=== PATIENT | male | born 1965 | race Two or more races ===

== ENCOUNTER 2017-10-12 00:07 | Inpatient (IN) | payer OTHER, MEDICAID ==
[~2017-10-12] VITALS: Ht 170.2 cm; Wt 75.6 kg
[~2017-10-12 00:07] MED LIST: ALBUPOW26 XX; HYDR-4683; IBUP800T24 PO; ISON300T68 PO; METO10TA3; MYCO500T3 PO; OMEP20TA44 PO; PRED-188 PO; PREDPOW63 PO; RANI300T3 PO; TAMS0.4C36 PO; THIA100T5 PO
[2017-10-12 01:50] LABS: Basophils # (auto) 0.1 uL; Basophils % (auto) 0.7 % (0.0-2.0); Eosinophils # (auto) 1.8 uL; Eosinophils % (auto) 13.9 % (0.0-7.0); Hemoglobin 15.7 g/dL (13.5-17.5); Lymphocytes # (auto) 0.8 uL; Lymphocytes % (auto) 6.1 % (10.0-50.0); Mean Corpuscular Hemoglobin 29.7 pg (28.0-32.0); Mean Corpuscular Hgb Conc. 33.3 g/dL (32.0-36.0); Monocytes # (auto) 0.9 uL; Monocytes % (auto) 6.6 % (0.0-12.0); Neutrophils # (auto) 9.4 uL; Neutrophils % (auto) 72.7 % (37.0-80.0); Platelet Count (auto) 286 10^3/uL (140-450); Red Blood Cells 5.28 10^6/uL (4.5-5.90); Red Cell Distribution Width 13.3 % (11.8-14.3)
[2017-10-12 02:15] LABS: Alanine Aminotransferase 25 U/L (16-61); Albumin 3.5 g/dL (3.4-5.0); Anion Gap 7 (5-15); Aspartate Aminotransferase 20 U/L (15-37); Blood Urea Nitrogen 12 mg/dL (7-18); Calcium 8.5 mg/dL (8.5-10.1); Carbon Dioxide 26 mmol/L (21-32); Chloride 104 mmol/L (98-107); GFR African American 111 mL/min; GFR Non-African American 92 mL/min; Glucose 105 mg/dL (74-106); Magnesium 1.9 mg/dL (1.6-2.6); Potassium 4.1 mmol/L (3.5-5.1); Sodium 137 mmol/L (136-145)
[2017-10-12 02:20] LABS: Alkaline Phosphatase 86 U/L (45-117); Bilirubin, Total 0.3 mg/dL (0.2-1.0); Total Protein 7.7 g/dL (6.4-8.2)
[2017-10-12 03:04] LABS: Alcohol, Urine < 3.0 mg/dL (0-5); Amphetamine Screen, Urine NEGATIVE (NEGATIVE); Barbiturate Scree,Urine NEGATIVE (NEGATIVE); Benzodiazephine Screen, Urine NEGATIVE (NEGATIVE); Cannabinoid Screen, Urine NEGATIVE (NEGATIVE); Cocaine Screen, Urine NEGATIVE (NEGATIVE); Opiate Scree,Urine NEGATIVE (NEGATIVE); Phencyclidine Screen, Urine NEGATIVE (NEGATIVE)
[2017-10-12 07:44] LABS: Urine WBC None Seen /hpf (0 - 3)
[2017-10-12 08:09] LABS: Urine Amorphous Crystal MOD /hpf (None Seen); Urine Bacteria NONE SEEN /hpf (None Seen); Urine Blood Negative /uL (Negative); Urine Mucus FEW (None Seen)
[2017-10-12] MEDS ORDERED: SODIUM CHLORIDE 0.9% 500 ML IVB ONE (11:53)
[2017-10-12] MEDS ORDERED: methylPREDNISolone SOD SUCC 125 MG/2 ML VL IV ONE ×2 (12:00→15:00)
[2017-10-12] MEDS ORDERED: cefTRIAXone 1GM/10ml IVPUSH 10 ML IV ONE (12:00)
[2017-10-12 13:01] LABS: Magnesium 2.2 mg/dL (1.6-2.6)
[2017-10-12] MEDS ORDERED: LORazepam 0.5 MG TAB PO PRN (15:00)
[2017-10-12] MEDS ORDERED: MORPHINE SULF INJ 2 MG/ML SYRINGE 1ML IV PRN (15:00)
[2017-10-12] MEDS ORDERED: VANCOMYCIN PER PHARMACY 0 MG IV SCH (15:00)
[2017-10-12] MEDS ORDERED: ALBUTEROL SULF 2.5 MG/0.5ML(0.5%) NEB SOLN HHN ONE (15:00)
[2017-10-12] MEDS ORDERED: NITROGLYCERIN 0.4 MG SL TAB SL PRN (15:00)
[2017-10-12] MEDS ORDERED: VANCOMYCIN 1GM/250ML 250 ML IV ONE (15:00)
[2017-10-12] MEDS ORDERED: PROMETHAZINE HCL 25 MG/ML 1ML IV PRN (15:00)
[2017-10-12] MEDS ORDERED: HYDROcodone-ACET 5/325MG TAB PO PRN (15:00)
[2017-10-12] MEDS ORDERED: IPRATROPIUM BROM 0.5 MG/2.5ML INH SOL HHN ONE (15:00)
[2017-10-12] MEDS ORDERED: PIPERACILLIN-TAZOB 3.375GM 50 ML IV ONE (15:00)
[2017-10-12] MEDS ORDERED: TEMAZEPAM 15 MG CAP PO PRN (15:00)
[2017-10-12] MEDS ORDERED: ALBUTEROL SULF 2.5 MG/0.5ML(0.5%) NEB SOLN NEB PRN (15:00)
[2017-10-12] MEDS ORDERED: LACTULOSE 20Gm/30ML SOLN PO PRN (15:00)
[2017-10-12] MEDS ORDERED: MORPHINE SULFATE 4 MG/ML SYR/VIAL IV PRN (15:00)
[2017-10-12] MEDS ORDERED: OSELTAMIVIR 75 MG CAP PO ONE (15:00)
[2017-10-12] MEDS: ENOXAPARIN SOD 40 MG/0.4 ML SYRINGE SC SCH (15:32)
[2017-10-12] MEDS: SODIUM CHLORIDE 0.9% 1,000 ML IV SCH (16:21)
[2017-10-12] MEDS: AZITHROMYCIN 500MG/ 250ML 250 ML IV SCH (16:48)
[2017-10-12] MEDS: ALBUTEROL SULF 2.5 MG/0.5ML(0.5%) NEB SOLN NEB SCH (18:00)
[2017-10-12] MEDS: IPRATROPIUM BROM 0.5 MG/2.5ML INH SOL NEB SCH (18:00)
[2017-10-12] MEDS: methylPREDNISolone SOD SUCC 40 MG/ML VL IV SCH ×2 (18:45→23:35)
[2017-10-12] MEDS: VANCOMYCIN 1GM/250ML 250 ML IV SCH (19:01)
[2017-10-12] MEDS: OSELTAMIVIR 75 MG CAP PO SCH (19:08)
[2017-10-12 20:15] VITALS: BP 104/69
[2017-10-12] MEDS: PIPERACILLIN-TAZOB 3.375GM 50 ML IV SCH ×2 (21:31→22:57)
[2017-10-12] MEDS: ISONIAZID 300 MG TAB PO SCH (21:44)
[2017-10-12 22:27] VITALS: BP 104/69
[2017-10-13] MEDS: PIPERACILLIN-TAZOB 3.375GM 50 ML IV SCH ×4 (02:25→21:00)
[2017-10-13] MEDS: SODIUM CHLORIDE 0.9% 1,000 ML IV SCH ×2 (04:26→18:00)
[2017-10-13] MEDS: ACETAMINOPHEN 500 MG TAB PO PRN ×2 (04:26→10:18)
[2017-10-13 04:34] VITALS: BP 104/69
[2017-10-13 05:30] VITALS: BP 117/71
[2017-10-13 05:33] LABS: Basophils # (auto) 0 uL; Basophils % (auto) 0.1 % (0.0-2.0); Eosinophils # (auto) 0 uL; Hematocrit 42.3 % (41.0-53.0); Hemoglobin 13.9 g/dL (13.5-17.5); Lymphocytes # (auto) 0.7 uL; Lymphocytes % (auto) 13.6 % (10.0-50.0); Mean Corpuscular Hgb Conc. 32.9 g/dL (32.0-36.0); Mean Corpuscular Volume 88.2 fL (80.0-100.0); Monocytes # (auto) 0.1 uL; Monocytes % (auto) 1.3 % (0.0-12.0); Neutrophils # (auto) 4.4 uL; Platelet Count (auto) 268 10^3/uL (140-450); Red Blood Cells 4.79 10^6/uL (4.5-5.90); Red Cell Distribution Width 13.6 % (11.8-14.3); White Blood Cell 5.2 10^3/uL (4.4-10.8)
[2017-10-13 05:58] LABS: BUN/Creatinine Ratio 17.1; Calcium 8.2 mg/dL (8.5-10.1); Potassium 3.8 mmol/L (3.5-5.1)
[2017-10-13] MEDS: methylPREDNISolone SOD SUCC 40 MG/ML VL IV SCH ×4 (05:58→23:52)
[2017-10-13] MEDS: VANCOMYCIN 1GM/250ML 250 ML IV SCH ×2 (05:58→18:23)
[2017-10-13] MEDS: IPRATROPIUM BROM 0.5 MG/2.5ML INH SOL NEB SCH ×4 (06:18→20:42)
[2017-10-13] MEDS: ALBUTEROL SULF 2.5 MG/0.5ML(0.5%) NEB SOLN NEB SCH ×4 (06:18→20:41)
[2017-10-13 08:39] VITALS: BP 100/71
[2017-10-13] MEDS ORDERED: OMEPRAZOLE 40 MG PO SCH (10:00)
[2017-10-13] MEDS ORDERED: THIAMINE HCL PO SCH (10:00)
[2017-10-13] MEDS: OSELTAMIVIR 75 MG CAP PO SCH ×2 (10:00→22:00)
[2017-10-13] MEDS ORDERED: PANTOPRAZOLE 40 MG TAB PO SCH (10:00)
[2017-10-13] MEDS: ISONIAZID 300 MG TAB PO SCH ×3 (10:00→22:04)
[2017-10-13] MEDS: ENOXAPARIN SOD 40 MG/0.4 ML SYRINGE SC SCH (10:11)
[2017-10-13] MEDS: TAMSULOSIN HYDROCHLORIDE 0.4 MG CAP PO SCH (10:11)
[2017-10-13] MEDS: THIAMINE HCL 100 MG TAB PO SCH (10:12)
[2017-10-13] MEDS: AZITHROMYCIN 500MG/ 250ML 250 ML IV SCH (11:08)
[2017-10-13 12:41] VITALS: BP 113/80
[2017-10-13] MEDS: MYCOPHENOLATE 500 MG TAB PO SCH (12:53)
[2017-10-13 17:13] VITALS: BP 122/80
[2017-10-13 22:09] VITALS: BP 123/87
[2017-10-14] MEDS: ALBUTEROL SULF 2.5 MG/0.5ML(0.5%) NEB SOLN NEB SCH ×2 (01:14→09:30)
[2017-10-14] MEDS: IPRATROPIUM BROM 0.5 MG/2.5ML INH SOL NEB SCH ×2 (01:14→09:30)
[2017-10-14] MEDS: PIPERACILLIN-TAZOB 3.375GM 50 ML IV SCH ×2 (02:43→10:41)
[2017-10-14 04:26] VITALS: BP 118/73
[2017-10-14 05:54] LABS: Basophils # (auto) 0 uL; Eosinophils # (auto) 0 uL; Hematocrit 39.6 % (41.0-53.0); Hemoglobin 13.1 g/dL (13.5-17.5); Lymphocytes # (auto) 0.7 uL; Lymphocytes % (auto) 4.9 % (10.0-50.0); Mean Corpuscular Hemoglobin 29.2 pg (28.0-32.0); Mean Corpuscular Hgb Conc. 33.1 g/dL (32.0-36.0); Mean Corpuscular Volume 88.2 fL (80.0-100.0); Monocytes # (auto) 0.3 uL; Monocytes % (auto) 2.1 % (0.0-12.0); Neutrophils # (auto) 13.4 uL; Platelet Count (auto) 269 10^3/uL (140-450); Red Cell Distribution Width 13.4 % (11.8-14.3); White Blood Cell 14.4 10^3/uL (4.4-10.8)
[2017-10-14] MEDS: methylPREDNISolone SOD SUCC 40 MG/ML VL IV SCH (06:16)
[2017-10-14 06:21] LABS: Albumin 2.8 g/dL (3.4-5.0); BUN/Creatinine Ratio 19.1; Bilirubin, Total 0.2 mg/dL (0.2-1.0); Calcium 8.1 mg/dL (8.5-10.1); Magnesium 2.4 mg/dL (1.6-2.6); Potassium 3.7 mmol/L (3.5-5.1); Total Protein 6.4 g/dL (6.4-8.2)
[2017-10-14] MEDS: SODIUM CHLORIDE 0.9% 1,000 ML IV SCH (06:52)
[2017-10-14] MEDS: VANCOMYCIN 1GM/250ML 250 ML IV SCH (07:22)
[2017-10-14 08:49] VITALS: BP 120/78
[2017-10-14] MEDS: MYCOPHENOLATE 500 MG TAB PO SCH (10:42)
[2017-10-14] MEDS: ISONIAZID 300 MG TAB PO SCH (10:43)
[2017-10-14] MEDS: TAMSULOSIN HYDROCHLORIDE 0.4 MG CAP PO SCH (10:43)
[2017-10-14] MEDS: THIAMINE HCL 100 MG TAB PO SCH (10:44)
[2017-10-14 10:45] VITALS: BP 120/78
[2017-10-14] MEDS ORDERED: VANCOMYCIN 1,250 MG in D5W 5% 250 ML IV SCH (14:00)
== END 2017-10-14 11:30 | disposition home or self-care (01) | DRG 190 ==
LOC: ER 00:07 → TELE 00:08 → TELE-CENTR 20:15
PROVIDERS: ADMIT Internal Medicine; ATTEND Internal Medicine
DX: J44.0 Chronic obstructive pulmonary disease with (acute) lower respiratory infection (principal); J18.9 Pneumonia, unspecified organism; J96.10 Chronic respiratory failure, unspecified whether with hypoxia or hypercapnia; J84.10 Pulmonary fibrosis, unspecified; Z99.81 Dependence on supplemental oxygen; J44.1 Chronic obstructive pulmonary disease with (acute) exacerbation; I10 Essential (primary) hypertension; K21.9 Gastro-esophageal reflux disease without esophagitis; N40.0 Benign prostatic hyperplasia without lower urinary tract symptoms; Z82.49 Family history of ischemic heart disease and other diseases of the circulatory system; Z82.5 Family history of asthma and other chronic lower respiratory diseases; Z83.3 Family history of diabetes mellitus; Z79.899 Other long term (current) drug therapy
CPT/HCPCS: 36415; 71020; 80048; 80053; 80202; 80307; 81001; 83605; 83735; 83880; 84100; 84484; 85025; 87040; 87400; 87493; 93005; 94640; 94761; J2543; J7060; J7517

== ENCOUNTER 2019-11-13 18:58 | Emergency (ER) | payer OTHER, MEDICAID ==
[~2019-11-13] VITALS: Ht 170.2 cm; Wt 68.9 kg
[~2019-11-13 18:58] MED LIST changes: +ALBUAER3 IN; -ALBUPOW26 XX; +BECL40AE11 IN; -HYDR-4683; -IBUP800T24 PO; +IPRIH INH; -ISON300T68 PO; -METO10TA3; -OMEP20TA44 PO; +PRED-158 PO; -PRED-188 PO; -PREDPOW63 PO; -RANI300T3 PO
[2019-11-13 20:55] LABS: Basophils # (auto) 0.1 uL; Basophils % (auto) 0.7 % (0.0-2.0); Eosinophils # (auto) 0 uL; Eosinophils % (auto) 0.4 % (0.0-7.0); Hematocrit 42.9 % (41.0-53.0); Hemoglobin 13.9 g/dL (13.5-17.5); Lymphocytes # (auto) 0.7 uL; Mean Corpuscular Hemoglobin 29.3 pg (28.0-32.0); Mean Corpuscular Hgb Conc. 32.4 g/dL (32.0-36.0); Mean Corpuscular Volume 90.5 fL (80.0-100.0); Monocytes # (auto) 0.4 uL; Monocytes % (auto) 3.5 % (0.0-12.0); Neutrophils # (auto) 9.4 uL; Neutrophils % (auto) 88.4 % (37.0-80.0); Platelet Count (auto) 238 10^3/uL (140-450); Red Blood Cells 4.74 10^6/uL (4.5-5.90); Red Cell Distribution Width 15.4 % (11.8-14.3); White Blood Cell 10.7 10^3/uL (4.4-10.8)
[2019-11-13 21:12] LABS: Albumin 3.4 g/dL (3.4-5.0); Anion Gap 3 (5-15); Blood Urea Nitrogen 19 mg/dL (7-18); Calcium 8.6 mg/dL (8.5-10.1); Carbon Dioxide 31 mmol/L (21-32); Chloride 108 mmol/L (98-107); Glucose 75 mg/dL (74-106); Magnesium 2.4 mg/dL (1.6-2.6); Potassium 4.5 mmol/L (3.5-5.1); Sodium 142 mmol/L (136-145)
[2019-11-13 21:18] LABS: Alanine Aminotransferase 41 U/L (16-61); Alkaline Phosphatase 74 U/L (45-117); Aspartate Aminotransferase 18 U/L (15-37); BUN/Creatinine Ratio 21.3; Bilirubin, Total 0.4 mg/dL (0.2-1.0); GFR African American 115 mL/min; GFR Non-African American 95 mL/min
[2019-11-14] MEDS ORDERED: MECLIZINE HCL 25 MG TAB PO ONE (02:15)
[2019-11-14 06:05] VITALS: BP 98/71
== END 2019-11-14 06:00 | disposition home or self-care (01) ==
LOC: ER 19:02
DX: R55 Syncope and collapse (principal); R42 Dizziness and giddiness; J84.10 Pulmonary fibrosis, unspecified; J44.9 Chronic obstructive pulmonary disease, unspecified; K21.9 Gastro-esophageal reflux disease without esophagitis; I10 Essential (primary) hypertension; Z88.1 Allergy status to other antibiotic agents; Z79.899 Other long term (current) drug therapy
CPT/HCPCS: 36415; 70450; 71046; 80053; 82962; 83735; 83880; 84484; 85025; 93005; 99284; J8597

== ENCOUNTER 2021-06-11 00:15 | Emergency (ER) | payer OTHER, MEDICAID ==
[~2021-06-11] VITALS: Ht 170.2 cm; Wt 72.6 kg
[~2021-06-11 00:15] MED LIST changes: -PRED-158 PO; +PRED10TA PO
[2021-06-11 00:17] VITALS: BP 151/109
== END 2021-06-11 00:52 | disposition left against medical advice (07) ==
LOC: ER 00:17
DX: I10 Essential (primary) hypertension (principal); R51.9 Headache, unspecified; Z53.21 Procedure and treatment not carried out due to patient leaving prior to being seen by health care provider
CPT/HCPCS: 93005

== ENCOUNTER 2023-04-17 13:43 | Emergency (ER) | payer OTHER, MEDICAID ==
[~2023-04-17] VITALS: Ht 170.2 cm; Wt 70.0 kg
[2023-04-17 14:18] LABS: Hematocrit 45.7 % (41.0-53.0); Hemoglobin 15.3 g/dL (13.5-17.5); Mean Corpuscular Hemoglobin 33.6 pg (28.0-32.0); Mean Corpuscular Hgb Conc. 33.6 g/dL (32.0-36.0); Red Blood Cells 4.56 10^6/uL (4.5-5.90); Red Cell Distribution Width 15.6 % (11.8-14.3); White Blood Cell 6.4 10^3/uL (4.4-10.8)
[2023-04-17 14:25] LABS: Basophils % (manual) 0 (0.0-2.0); Blast Cells 0; Myelocytes % 0; Promyelocytes % 0
[2023-04-17 15:03] LABS: Band Neutrophils % (manual) 11; Eosinophils % (manual) 2 (0-7); Lymphocytes % (manual) 13 (10.0-50.0); Metamyelocytes % 1; Monocytes % (manual) 16 (0-12); Reactive Lymphocytes 5
[2023-04-17 15:33] LABS: Potassium 4.1 mmol/L (3.5-5.1)
[2023-04-17 15:39] LABS: Albumin 3.5 g/dL (3.4-5.0); BUN/Creatinine Ratio 17.9 (10.0-20.0); Calcium 8.4 mg/dL (8.5-10.1); Magnesium 1.8 mg/dL (1.6-2.6)
[2023-04-17 15:41] LABS: Bilirubin, Total 0.3 mg/dL (0.2-1.0)
[2023-04-17 16:41] VITALS: BP 128/96
== END 2023-04-17 16:42 | disposition home or self-care (01) ==
LOC: ER 13:43
DX: J84.10 Pulmonary fibrosis, unspecified (principal); F41.9 Anxiety disorder, unspecified; J44.9 Chronic obstructive pulmonary disease, unspecified; K21.9 Gastro-esophageal reflux disease without esophagitis; I10 Essential (primary) hypertension
CPT/HCPCS: 36415; 70450; 71250; 80053; 83735; 83880; 84484; 85007; 85027; 85379; 93005

== ENCOUNTER 2024-11-29 13:57 | Inpatient (IN) | payer OTHER, MEDICAID ==
[~2024-11-29] VITALS: Ht 170.2 cm; Wt 58.1 kg
[~2024-11-29 13:57] MED LIST changes: -TAMS0.4C36 PO; +TAMS0.4C39 PO
--- NOTE | 2024-11-29 14:16 | ED.PDOC ---
History of Present Illness HPI Comments 59M presents to the ER in a wheelchair and w/ spouse and prior Hx of double lung transplant, and COPD which might be associated to the c/c of SOB x3days. Spouse reports that the pt has been coughing phlegm for the past 3 days and worsened last night. PMHx of colostomy, GERD, and HTN. SHx of Hernia Repair. Denies chills, fever, N/V/D, CP or other associated symptom's, modifiers, or recent injuries or sick contact at this time. Time Seen by MD: 14:05 Primary Care Provider: [facility] Reviewed Notes: Nurses Notes, Medications, Allergies Allergies: Coded Allergies: Azithromycin (Verified Allergy, Severe, 04/17/23) Doxycycline (Verified Allergy, Unknown, 10/21/19) Levofloxacin (Verified Allergy, Unknown, 10/21/19) Home Meds Active Scripts Ipratropium [place] Hfa (Atrovent Hfa) 17 Mcg Aer, 2 PUFF INH QID PRN for 30 Da ys, #12.9 GRAMS 1 Refill Prov:ELISABETH LAL MD 10/26/19 Reported Medications Albuterol Sulfate (VENTOLIN MDI) 90 Mcg Ih, 90 MCG IN Q6HP PRN for SHORTNESS OF BREATH for 30 Days, MCG 10/22/19 Beclomethasone Dipropionate (Qvar Redihaler) 40 Mcg/Act Aer, 40 MCG IN, AER 10/22/19 Prednisone (Prednisone) 10 Mg Tab, 15 MG PO DAILY, MG 10/22/19 Thiamine Hcl (Thiamine Hcl) 100 Mg Tab, 1 TAB PO DAILY, #30 TAB 3 Refills 04/16/16 Mycophenolate Mofetil (Mycophenolate Mofetil) 500 Mg Tab, 500 MG PO BID, TAB 04/16/16 Tamsulosin Hcl (Tamsulosin Hcl) 0.4 Mg Cap, 1 CAP PO DAILY, #30 CAP 5 Refills 04/16/16 Information Source: Patient, Spouse Mode of Arrival: Wheelchair Severity: Moderate Timing: Days Duration: Since onset, Days Prehospital treatment: None Past Medical History PAST MEDICAL HISTORY: COPD, GERD, HTN Past Medical History (Other): Lung transplant and Coloscopy Surgical History: Hernia Repair Family History Family History: Reviewed,noncontributory to illness, Unknown, Family hx of HTN Social History Smoker: Non-Smoker Alcohol: Denies ETOH Use Drugs: Denies Drug Use Lives In: Home Constitutional: denies: chills, diaphoresis, fatigue, fever, malaise, sweats, weakness, others EENTM: denies: blurred vision, double vision, ear bleeding, ear discharge, ear drainage, ear pain, ear ringing, eye pain, eye redness, hearing loss, mouth pain, mouth swelling, nasal discharge, nose bleeding, nose congestion, nose pain, photophobia, tearing, throat pain, throat swelling, voice changes, others Respiratory: reports: cough, shortness of breath; denies: hemoptysis, orthopnea, SOB at rest, SOB with excertion, stridor, wheezing, others Cardiovascular: denies: chest pain, dizzy spells, diaphoresis, Dyspnea on exertion, edema, irregular heart beat, left arm pain, lightheadedness, palpitations, PND, syncope, others Gastrointestinal: denies: abdomen distended, abdominal pain, blood streaked bowels, constipated, diarrhea, dysphagia, difficulty swallowing, hematemesis, melena, nausea, poor appetite, poor fluid intake, rectal bleeding, rectal pain, vomiting, others Genitourinary: denies: burning, dysuria, flank pain, frequency, hematuria, incontinence, penile discharge, penile sore, pain, testicle pain, testicle swelling, urgency, others Neurological: denies: dizziness, fainting, headache, left sided numbness, left sided weakness, numbness, paresthesia, pre-existing deficit, right sided numbness, right sided weakness, seizure, speech problems, tingling, tremors, weakness, others Musculoskeletal: denies: back pain, gout, joint pain, joint swelling, muscle pain, muscle stiffness, neck pain, others Integumetry: denies: bruises, change in color, change in hair/nails, dryness, laceration, lesions, lumps, rash, wounds, others Allergic/Immunocompromised: denies: Difficulty Healing, Frequent Infections, Hives, Itching, others Hematologic/Lymphatic: denies: anemia, blood clots, easy bleeding, easy bruising, swollen glands, others Endocrine: denies: excessive hunger, excessive sweating, excessive thirst, excessive urination, flushing, intolerance to cold, intolerance to heat, unexplained weight gain, unexplained weight loss, others Psychiatric: denies: anxiety, bipolar disorder, depression, hopeless, panic disorder, schizophrenia, sleepless, suicidal, others All Other Systems: Reviewed and Negative Physical Exam General Appearance: Moderate Distress, Normal HEENT: Normal ENT Inspection, Pharynx Normal, TMs Normal Neck: Full Range of Motion, Non-Tender, Normal, Normal Inspection Respiratory: Chest Non-Tender, No Accessory Muscle Use, Wheezing Cardiovascular: No Edema, No JVD, No Murmur, No Gallop, Normal Peripheral Pulses, Regular Rate/Rhythm Breast Exam: Deferred Gastrointestinal: No Organomegaly, Non Tender, No Pulsatile Mass, Normal Bowel Sounds, Soft Genitalia: Deferred Pelvic: Deferred Rectal: Deferred Extremities: No calf tenderness, Normal capillary refill, Normal inspection, Normal range of motion, Non-tender, No pedal edema Musculoskeletal : Apperance: Normal Neurologic: Alert, taper printed circuit layout II-XII nml as Tested, No Motor Deficits, Normal Affect, Normal Mood, No Sensory Deficits Cerebellar Function: NOT DONE Reflexes: NOT DONE Skin: Dry, Normal Color, Warm Peripheral Pulses: 3+ Radial (R), 3+ Radial (L) Lymphatic: No Adenopathy Was a procedure done? Was a procedure done?: No Differential Dx Considerations may include: Pneumonitis Electrolyte imbalance X-Ray, Labs, Meds, VS Vital Signs Date Time Temp Pulse Resp B/P (MAP) Pulse Ox O2 Delivery O2 Flow Rate FiO2 11/29/24 14:38 18 98 Nasal Cannula* 2 28 11/29/24 14:19 98.1 74 20 126/80 (95) 93 Lab Test 11/29/24 14:45 Range/Units White Blood Count 11.3 H 4.4-10.8 10^3/uL Red Blood Count 3.05 L 4.5-5.90 10^6/uL Hemoglobin 10.3 L 13.5-17.5 g/dL Hematocrit 31.9 L 41.0-53.0 % Mean Corpuscular Volume 104.4 H 80.0-100.0 fL Mean Corpuscular Hemoglobin 33.8 H 28.0-32.0 pg Mean Corpuscular Hemoglobin Concent 32.4 32.0-36.0 g/dL Red Cell Distribution Width 16.3 H 11.8-14.3 % Platelet Count 357 140-450 10^3/uL Mean Platelet Volume 6.9 6.9-10.8 fL Neutrophils (%) (Auto) 37.0-80.0 % Lymphocytes (%) (Auto) 10.0-50.0 % Monocytes (%) (Auto) 0.0-12.0 % Basophils (%) (Auto) 0.0-2.0 % Neutrophils # (Auto) 1.6-8.6 10 ^3/uL Lymphocytes # (Auto) 0.4-5.4 10 ^3/uL Monocytes # (Auto) 0-1.3 10 ^3/uL Differential Total Cells Counted 100.0 100 Neutrophils % (Manual) 89 H 37.0-80.0 Band Neutrophils % (Manual) 3 Lymphocytes % (Manual) 3 L 10.0-50.0 Monocytes % (Manual) 4 0-12 Eosinophils % (Manual) 1 0-7 Basophils % (Manual) 0 0.0-2.0 Metamyelocytes % (manual) 0 Myelocytes % (Manual) 0 Promyelocytes % (Manual) 0 Blast Cells % (Manual) 0 Reactive Lymphocytes 0 Platelet Estimate Adequate Macrocytosis Slight Sodium Level 143 136-145 mmol/L Potassium Level 4.6 3.5-5.1 mmol/L Chloride Level 108 H 98-107 mmol/L Carbon Dioxide Level 28 20-31 mmol/L Anion Gap 7 5-15 Blood Urea Nitrogen 24 H 9-23 mg/dL Creatinine 1.06 0.700-1.30 mg/dL Glomerular Filtration Rate Calc 81 >90 mL/min BUN/Creatinine Ratio 22.6 H 10.0-20.0 Serum Glucose 105 74-106 mg/dL Calcium Level 9.1 8.7-10.4 mg/dL Troponin I High Sensitivity 13 </=54 ng/L Current Medications Medications (Trade) Dose Ordered Sig/[place]ra[place] Route Start Time Stop Time Status Last Admin Albuterol (Ventolin Medneb) 5 mg ONCE ONCE NEB 11/29/24 14:15 11/29/24 14:16 DC 11/29/24 14:38 Ipratropium [place] (Atrovent Medneb) 0.5 mg ONCE ONCE NEB 11/29/24 14:15 11/29/24 14:16 DC 11/29/24 14:39 Methylprednisolone Sodium Succinate (Solu Medrol) 125 mg ONCE ONCE IV 11/29/24 14:15 11/29/24 14:16 DC 11/29/24 14:46 Patient alert. Complaining of shortness a breath. Was given steroid. Currently on oxygen. Was given breathing treatment. Had lung transplant. Was given steroid. He is taking his immunosuppressant. WBC slightly elevated. Mild anemia. Chest x-ray reviewed does show pneumonitis. No leg swelling. Moving all extremities. Explained to the patient. Continue cardiac monitoring. Time of 1ST Reevaluation: 14:35 Reevaluation 1ST: Unchanged Patient Education/Counseling: Diagnosis, Treatment, Prognosis Family Education/Counseling: Diagnosis, Treatment, Prognosis Departure 1 Departure Time of Disposition: 17:00 Impression: Primary Impression: Pneumonitis Additional Impressions: Pulmonary fibrosis Acute respiratory distress Disposition: ADMITTED INPATIENT Admit to: Med Surg Condition: Guarded Critical Care Note Critical Care Time?: Yes (45 min-critical care time only) Critical care comment: Currently on oxygen Stability Stability form required: No Heart Score Heart Score: Heart Score Response (Comments) Value History N/A 0 EKG N/A 0 Age N/A 0 Risk Factors N/A 0 Troponin N/A 0 Total 0 I personally scribed for SRI BAEZ MD ([email or web address]) on 11/29/24 at 14:16. Electronically submitted by Gurdeep Reddy ([email or web address]). SRI BAEZ MD Nov 29, 2024 14:16
[2024-11-29 14:30] VITALS: PULSE 108; RESP 21; O2SAT 96
[2024-11-29] MEDS: ALBUTEROL SULF 2.5 MG/0.5ML(0.5%) NEB SOLN NEB ONE (14:38)
[2024-11-29] MEDS: IPRATROPIUM BROM 0.5 MG/2.5ML INH SOL NEB ONE (14:39)
[2024-11-29] MEDS: methylPREDNISolone SOD SUCC 125 MG/2 ML VL IV ONE (14:46)
[2024-11-29 14:55] LABS: Hemoglobin 10.3 g/dL (13.5-17.5); Mean Corpuscular Volume 104.4 fL (80.0-100.0)
[2024-11-29 14:57] LABS: Hematocrit 31.9 % (41.0-53.0); Mean Corpuscular Hemoglobin 33.8 pg (28.0-32.0); Mean Corpuscular Hgb Conc. 32.4 g/dL (32.0-36.0); Platelet Count (auto) 357 10^3/uL (140-450); Red Blood Cells 3.05 10^6/uL (4.5-5.90); Red Cell Distribution Width 16.3 % (11.8-14.3); White Blood Cell 11.3 10^3/uL (4.4-10.8)
[2024-11-29 15:03] LABS: Potassium 4.6 mmol/L (3.5-5.1); Sodium 143 mmol/L (136-145)
[2024-11-29 15:04] LABS: Anion Gap 7 (5-15); Calcium 9.1 mg/dL (8.7-10.4); Carbon Dioxide 28 mmol/L (20-31)
[2024-11-29 15:07] LABS: Basophils % (manual) 0 (0.0-2.0); Blast Cells 0; Metamyelocytes % 0; Myelocytes % 0; Promyelocytes % 0; Reactive Lymphocytes 0
[2024-11-29 15:09] LABS: BUN/Creatinine Ratio 22.6 (10.0-20.0); Glucose 105 mg/dL (74-106)
[2024-11-29 15:10] LABS: Blood Urea Nitrogen 24 mg/dL (9-23); Chloride 108 mmol/L (98-107)
--- NOTE | 2024-11-29 15:14 | DVH ---
CLINICAL INFORMATION: 59 years old, Male; shortness of breath. TECHNIQUE: Single AP portable chest radiograph was obtained. COMPARISON: CHEST PORTABLE on DOS: 10/26/19. Chest CT dated 04/17/2023. FINDINGS: Lungs: Mild atelectasis in the lung bases. No focal consolidation. No pneumothorax or pleural effusio n. Cardiac: Heart size is within normal limits. Pulmonary vasculature: Unremarkable. Mediastinum/jory: Unremarkable. Bones: No acute osseous abnormality identified. Other: Similar-appearing postsurgical changes. IMPRESSION: No evidence of acute disease in the chest.
[2024-11-29 15:45] LABS: Band Neutrophils % (manual) 3; Eosinophils % (manual) 1 (0-7); Lymphocytes % (manual) 3 (10.0-50.0); Monocytes % (manual) 4 (0-12); Platelet Estimate Adequate
[2024-11-29 15:46] LABS: Macrocytosis Slight
[2024-11-29 17:45] LABS: Urine Bacteria None Seen /hpf (None Seen)
[2024-11-29 18:31] LABS: Urine Blood Negative /uL (Negative); Urine Clarity Clear (Clear); Urine Color Light-Yellow (Yellow); Urine Mucus FEW (None Seen); Urine Protein, UAD TRACE (Negative); Urine Specific Gravity 1.016 (1.001-1.035); Urine Squamous Epithelial Cell None Seen /hpf (<5); Urine Urobilinogen Normal (Negative); Urine WBC 1 /HPF (0-3); Urine pH 5.5 (5.0-9.0)
[2024-11-29 19:28] VITALS: PULSE 112; RESP 23; O2SAT 98
[2024-11-29] MEDS ORDERED: ONDANSETRON HCL 4 MG/2 ML VIAL IV PRN (19:30)
[2024-11-29] MEDS ORDERED: ALBUTEROL SULF 2.5 MG/0.5ML(0.5%) NEB SOLN NEB PRN (19:30)
[2024-11-29 19:49] VITALS: BP 126/80; PULSE 74; RESP 20; TEMP 98.1; O2SAT 96
[2024-11-29 19:52] VITALS: O2SAT 94
[2024-11-29] MEDS: cefTRIAXone 1GM/50ML D5W 50 ML IV ONE (20:09)
--- NOTE | 2024-11-29 20:36 | DVHHP2 ---
History of Present Illness Reason for Visit: Shortness for breath History of Present Illness 59 year old presents for evaluation shortness for breath. Patient with a history of lung transplant three years ago presents with shortness for with a productive cough with yellow phlegm for the past three days. Patient reports occasional chills. Denies chest pain or palpitations. No fever. No other acute complaints reported. Past Medical History Hypertension, COPD. Past Surgical History Lung transplant and colostomy Family History Noncontributory Smoke: No ALCOHOL: none Drugs: None Lives: with Family Review of Systems Review of Systems Review of systems are currently negative otherwise addressed in HPI Allergies: Coded Allergies: Azithromycin (Verified Allergy, Severe, 04/17/23) Doxycycline (Verified Allergy, Unknown, 10/21/19) Levofloxacin (Verified Allergy, Unknown, 10/21/19) Medications Current Medications Medications Dose Ordered Sig/Zoraida Route Start Time Stop Time Status Last Admin Dose Admin Apixaban 5 mg BID PO 11/29/24 22:00 Montelukast Sodium 10 mg HS PO 11/29/24 22:00 Tamsulosin HCl 0.4 mg QPM PO 11/30/24 18:00 Albuterol 2.5 mg Q6HPRN PRN NEB 11/29/24 19:30 Ipratropium [place] 0.5 mg Q6HPRN PRN NEB 11/29/24 19:30 Ondansetron HCl 4 mg Q4HP PRN IV 11/29/24 19:30 Acetaminophen 650 mg Q6HP PRN PO 11/29/24 19:30 Ceftriaxone Sodium 50 ml @ 100 mls/hr DAILY@09 IV 11/30/24 09:00 Prednisone 10 mg DAILY PO 11/29/24 20:30 UNV Exam Vital Signs Vital Signs Date Time Temp Pulse Resp B/P (MAP) Pulse Ox O2 Delivery O2 Flow Rate FiO2 11/29/24 19:52 94 Nasal Cannula 3.0 11/29/24 19:52 32 11/29/24 19:49 98.1 74 20 126/80 98.1 Exam Gen: 59-year-old male mild distress Skin: Warm, dry, normal color and texture, no rash. HEENT: Normocephalic atraumatic, mucous membranes moist and pink. Neck: Cervical and supraclavicular nodes normal without enlargement, trachea is midline, thyroid gland is normal without masses. Pulmonary: Bilateral rhonchi Cardiac: Regular rate and rhythm. No murmur Abdomen: Soft, nontender, nondistended, bowel sounds present all 4 quadrants, no guarding, no rigidity, no organomegaly. Extremities: No cyanosis, clubbing, no edema Neuro: Cranial nerves II through XII grossly intact, normal affect and speech, no focal motor deficits. Labs/Xrays ORDERING PHYSICIAN: SRI BAEZ MD PROCEDURE(s): CXRP - CHEST PORTABLE REASON: sob ORDER NUMBER(s): [id number], ACCESSION NUMBER(s): [id number] CLINICAL INFORMATION: 59 years old, Male; shortness of breath. TECHNIQUE: Single AP portable chest radiograph was obtained. COMPARISON: CHEST PORTABLE on DOS: 10/26/19. Chest CT dated 04/17/2023. FINDINGS: Lungs: Mild atelectasis in the lung bases. No focal consolidation. No pneumothorax or pleural effusion. Cardiac: Heart size is within normal limits. Pulmonary vasculature: Unremarkable. Mediastinum/jory: Unremarkable. Bones: No acute osseous abnormality identified. Other: Similar-appearing postsurgical changes. IMPRESSION: No evidence of acute disease in the chest. Labs Test 11/29/24 17:39 11/29/24 14:45 Range/Units Urine Color Light-yellow Yellow Urine Clarity Clear Clear Urine pH 5.5 5.0-9.0 Urine Specific [place] 1.016 1.001-1.035 Urine Protein Trace H Negative Urine Ketones Negative Negative Urine Blood Negative Negative /uL Urine Nitrite Negative Negative Urine Bilirubin Negative Negative Urine Urobilinogen Normal Negative mg/dL Urine Leukocyte Esterase Negative Negative /uL Urine RBC <1 0 - 3 /hpf Urine Microscopic WBC 1 0-3 /HPF Urine Squamous Epithelial Cells None seen <5 /hpf Urine Bacteria None seen None Seen /hpf Urine Mucus Few None Seen Urine Glucose Normal Normal mg/dL White Blood Count 11.3 H 4.4-10.8 10^3/uL Red Blood Count 3.05 L 4.5-5.90 10^6/uL Hemoglobin 10.3 L 13.5-17.5 g/dL Hematocrit 31.9 L 41.0-53.0 % Mean Corpuscular Volume 104.4 H 80.0-100.0 fL Mean Corpuscular Hemoglobin 33.8 H 28.0-32.0 pg Mean Corpuscular Hemoglobin Concent 32.4 32.0-36.0 g/dL Red Cell Distribution Width 16.3 H 11.8-14.3 % Platelet Count 357 140-450 10^3/uL Mean Platelet Volume 6.9 6.9-10.8 fL Neutrophils (%) (Auto) 37.0-80.0 % Lymphocytes (%) (Auto) 10.0-50.0 % Monocytes (%) (Auto) 0.0-12.0 % Basophils (%) (Auto) 0.0-2.0 % Neutrophils # (Auto) 1.6-8.6 10 ^3/uL Lymphocytes # (Auto) 0.4-5.4 10 ^3/uL Monocytes # (Auto) 0-1.3 10 ^3/uL Differential Total Cells Counted 100.0 100 Neutrophils % (Manual) 89 H 37.0-80.0 Band Neutrophils % (Manual) 3 Lymphocytes % (Manual) 3 L 10.0-50.0 Monocytes % (Manual) 4 0-12 Eosinophils % (Manual) 1 0-7 Basophils % (Manual) 0 0.0-2.0 Metamyelocytes % (manual) 0 Myelocytes % (Manual) 0 Promyelocytes % (Manual) 0 Blast Cells % (Manual) 0 Reactive Lymphocytes 0 Platelet Estimate Adequate Macrocytosis Slight Sodium Level 143 136-145 mmol/L Potassium Level 4.6 3.5-5.1 mmol/L Chloride Level 108 H 98-107 mmol/L Carbon Dioxide Level 28 20-31 mmol/L Anion Gap 7 5-15 Blood Urea Nitrogen 24 H 9-23 mg/dL Creatinine 1.06 0.700-1.30 mg/dL Glomerular Filtration Rate Calc 81 >90 mL/min BUN/Creatinine Ratio 22.6 H 10.0-20.0 Serum Glucose 105 74-106 mg/dL Calcium Level 9.1 8.7-10.4 mg/dL Troponin I High Sensitivity 13 </=54 ng/L Assessment/Plan Assessment/Plan Assessment Acute on chronic respiratory failure Acute pneumonitis COPD Status post lung transplant Admit the patient to Med surge to the hospitalist Charmaine rojas Resume home medications Continue treatment per orders Plan discussed with: Patient My Orders Orders - TARA ROBERTSON Procedure Category Date Status Time Rapid Influenza A&B LAB 11/29/24 Logged 19:21 Covid19 Antigen L[place] LAB 11/29/24 Logged Apixaban (Eliquis) PHA 11/29/24 In Process 22:00 Montelukast Tablet PHA 11/29/24 In Process (Singulair Tablet) 22:00 Tamsulosin PHA 11/30/24 In Process Hydrochloride (Flomax) 18:00 Albuterol Medneb PHA 11/29/24 In Process (Ventolin Medneb) 19:30 Ipratropium Medneb PHA 11/29/24 In Process (Atrovent Medneb) 19:30 Basic Metabolic Panel LAB 11/30/24 Verified 04:00 Admit ADMIT 11/29/24 Transmitted 19:21 Ondansetron Hcl PHA 11/29/24 In Process (Zofran) 19:30 Complete Blood Count LAB 11/30/24 Verified 04:00 Cardiac DIET 11/30/24 Transmitted Diet-2gna,Lofat,Lochol Breakfast Condition: Stable ELIZABETH 11/29/24 In Process 19:21 Acetaminophen Tablet PHA 11/29/24 In Process (Tylenol Tablet) 19:30 Bedrest With Bathroom ELIZABETH 11/29/24 In Process Privileg 19:21 Ceftriaxone 1gm/50ml PHA 11/30/24 In Process D5w (Rocephin) 09:00 Prednisone Tablet PHA 11/29/24 Logged 20:30 Tacrolimus (Prograf) PHA 11/30/24 Logged 10:00 Date of Service: Nov 29, 2024 Billing Provider: TARA ROBERTSON Common Visit Codes: [id number] INP/OBS CARE (HIGH) TARA ROBERTSON Nov 29, 2024 20:36
[2024-11-29] MEDS: predniSONE 5 MG TAB PO SCH (20:53)
[2024-11-29 21:50] LABS: COVID19 ANTIGEN SOFIA FIA NEGATIVE (NEGATIVE)
[2024-11-29 21:51] LABS: Rapid Influenza A Negative (Negative); Rapid Influenza B Negative (Negative)
[2024-11-29] MEDS ORDERED: MYCOPHENOLATE 500 MG TAB PO SCH (22:00)
[2024-11-29] MEDS: APIXABAN 5 MG TAB PO SCH (22:09)
[2024-11-29] MEDS: MONTELUKAST SODIUM 10 MG TAB PO SCH (22:09)
[2024-11-29 23:01] VITALS: BP 138/84; PULSE 109; RESP 19; TEMP 97.7; O2SAT 98
[2024-11-29] MEDS: ACETAMINOPHEN 325 MG TAB PO PRN (23:16)
[2024-11-30] VITALS (11 sets, daily range): BP systolic 128–144; BP diastolic 75–99; PULSE 91–116; RESP 14–20; TEMP 97.5–98.1; O2SAT 94–100
[2024-11-30] MEDS ORDERED: traZODone HCL 50 MG TAB PO ONE (01:30)
[2024-11-30] MEDS: TEMAZEPAM 15 MG CAP PO ONE (01:49)
[2024-11-30 07:12] LABS: Anion Gap 9 (5-15); Carbon Dioxide 25 mmol/L (20-31)
[2024-11-30 07:13] LABS: Calcium 9.3 mg/dL (8.7-10.4)
[2024-11-30 07:17] LABS: BUN/Creatinine Ratio 21.3 (10.0-20.0)
[2024-11-30 07:20] LABS: Blood Urea Nitrogen 23 mg/dL (9-23); Chloride 107 mmol/L (98-107); Glucose 128 mg/dL (74-106); Potassium 5.3 mmol/L (3.5-5.1); Sodium 141 mmol/L (136-145)
[2024-11-30] MEDS ORDERED: predniSONE 5 MG TAB PO SCH (10:00)
[2024-11-30] MEDS: TACROLIMUS 0.5 MG CAP PO SCH (10:46)
[2024-11-30] MEDS: cefTRIAXone 1GM/50ML D5W 50 ML IV SCH (10:47)
--- NOTE | 2024-11-30 11:41 | DVHPN2 ---
Subjective The patient seen and examined at bedside. No complaint today. Reviewed: Care Plan, H&P, Labs, Medications, Previous Orders, Radiology Changes from previous H/P or p: No Changes Objective Vitals Vital Signs Date Time Temp Pulse Resp B/P (MAP) Pulse Ox O2 Delivery O2 Flow Rate FiO2 11/30/24 08:30 97.5 95 16 133/75 (94) 98 97.5 11/29/24 22:46 Nasal Cannula* 2 28 Intake/Output Intake and Output 11/30/24 07:00 Intake Total 700 ml Output Total 300 ml Balance 400 ml Intake Oral 700 ml Output Urine Total 300 ml General Appearance: Alert, Oriented X3, Cooperative, No acute distress HEENT: Atraumatic, PERRLA, EOMI, Mucous membr. moist/pink Neck: Supple Lungs: Clear to auscultation, Normal air movement Cardiovascular: Regular rate, Normal S1, Normal S2, No murmurs, Gallops, Rubs Abdomen: Normal bowel sounds, Soft, No tenderness Neuro: Cranial nerves 3-12 NL Psych/Mental Status: Mental status NL Medications Current Medications Medications Dose Ordered Sig/Zoraida Route Start Time Stop Time Status Last Admin Dose Admin Apixaban 5 mg BID PO 11/29/24 22:00 11/30/24 10:47 5 MG Montelukast Sodium 10 mg HS PO 11/29/24 22:00 11/29/24 22:09 10 MG Tamsulosin HCl 0.4 mg QPM PO 11/30/24 18:00 Albuterol 2.5 mg Q6HPRN PRN NEB 11/29/24 19:30 Ipratropium [place] 0.5 mg Q6HPRN PRN NEB 11/29/24 19:30 Ondansetron HCl 4 mg Q4HP PRN IV 11/29/24 19:30 Acetaminophen 650 mg Q6HP PRN PO 11/29/24 19:30 11/29/24 23:16 650 MG Ceftriaxone Sodium 50 ml @ 100 mls/hr DAILY@09 IV 11/30/24 09:00 11/30/24 10:47 100 MLS/HR Prednisone 10 mg DAILY PO 11/29/24 20:30 11/30/24 10:46 10 MG Tacrolimus 2.5 mg DAILY PO 11/30/24 10:00 11/30/24 10:46 2.5 MG Laboratory Results Laboratory Tests 11/30/24 06:26 Chemistry Test 11/29/24 14:45 11/30/24 06:26 Calcium Level 9.1 mg/dL (8.7-10.4) 9.3 mg/dL (8.7-10.4) Urinalysis Test 11/29/24 17:39 Urine Color Light-yellow (Yellow) Urine Clarity Clear (Clear) Urine pH 5.5 (5.0-9.0) Urine Specific [place] 1.016 (1.001-1.035) Urine Protein Trace (Negative) H Urine Ketones Negative (Negative) Urine Blood Negative /uL (Negative) Urine Nitrite Negative (Negative) Urine Bilirubin Negative (Negative) Urine Urobilinogen Normal mg/dL (Negative) Urine Leukocyte Esterase Negative /uL (Negative) Urine RBC <1 /hpf (0 - 3) Urine Microscopic WBC 1 /HPF (0-3) Urine Squamous Epithelial Cells None seen /hpf (<5) Urine Bacteria None seen /hpf (None Seen) Urine Mucus Few (None Seen) Urine Glucose Normal mg/dL (Normal) Labs and/or images reviewed: Labs reviewed by me Assessment/Plan Assessment/Plan Acute on chronic respiratory failure Pneumonia possible Gram-positive pneumonia COPD Status post lung transplant 2021 Atrial fibrillation Acute kidney injury Plan: Continuing current management. Continuing with IV antibiotic. Continuing with nebulizer. Continuing with Eliquis. We will monitor kidney function. Discussed with regarding to his transplant status. We will contact [place] [facility] if needed This medical document was created using an electronic medical record system with [employer] direct computerized dictation system. Although this document has been carefully reviewed, there may still be some phonetic and typographical errors. These areas are purely typographical due to imperfections of the software programs, and do not reflect any compromise in the patient's medical care. Plan discussed with: Patient, Spouse Date of Service: Nov 30, 2024 Billing Provider: BERTA MOORE MD Common Visit Codes: [id number] INP/OBS CARE(HIGH) BERTA MOORE MD Nov 30, 2024 11:40
[2024-11-30] MEDS: IPRATROPIUM BROM 0.5 MG/2.5ML INH SOL NEB PRN (11:46)
[2024-11-30] MEDS: ALBUTEROL SULF 2.5 MG/0.5ML(0.5%) NEB SOLN NEB PRN (11:46)
[2024-11-30 11:49] LABS: Hematocrit 31.8 % (41.0-53.0); Hemoglobin 10.3 g/dL (13.5-17.5); Mean Corpuscular Hemoglobin 33.7 pg (28.0-32.0); Mean Corpuscular Hgb Conc. 32.5 g/dL (32.0-36.0); Mean Corpuscular Volume 103.7 fL (80.0-100.0); Platelet Count (auto) 377 10^3/uL (140-450); Red Blood Cells 3.07 10^6/uL (4.5-5.90); Red Cell Distribution Width 16.3 % (11.8-14.3); White Blood Cell 10.4 10^3/uL (4.4-10.8)
[2024-11-30 11:52] LABS: Basophils % (manual) 0 (0.0-2.0); Blast Cells 0; Eosinophils % (manual) 0 (0-7); Myelocytes % 0; Reactive Lymphocytes 0
[2024-11-30 12:52] LABS: Band Neutrophils % (manual) 9; Lymphocytes % (manual) 2 (10.0-50.0); Macrocytosis Slight; Metamyelocytes % 1; Monocytes % (manual) 1 (0-12); Platelet Estimate Adequate; Promyelocytes % 1
[2024-11-30] MEDS: HYDROcodone-ACET 5/325MG TAB PO PRN (14:53)
[2024-11-30] MEDS: LORazepam 2MG/ML-1ML VIAL IV PRN (17:10)
[2024-11-30] MEDS: TAMSULOSIN HYDROCHLORIDE 0.4 MG CAP PO SCH (17:10)
[2024-11-30] MEDS ORDERED: POM PO (18:39)
[2024-11-30] MEDS ORDERED: MULT-1018 PO (18:47)
[2024-11-30] MEDS ORDERED: TACR1TAB4 PO (18:47)
[2024-11-30] MEDS ORDERED: PRED1PAK9 PO (18:47)
[2024-11-30] MEDS ORDERED: TACR200T PO (18:47)
[2024-11-30] MEDS ORDERED: PRE5T PO (18:56)
[2024-11-30] MEDS ORDERED: LOPE1TAB24 PO (18:56)
[2024-11-30] MEDS: MELATONIN 5 MG TAB PO ONE (21:38)
--- NOTE | 2024-11-30 23:08 | DVHINCON2 ---
Date of service: Nov 30, 2024 Referring Physician Rafa Stark NP Reason for Consultation Acute on chronic hypoxic respiratory failure, hx of lung transplant. History of Present Illness A 59-year-old man with past medical history of lung transplant 3 years ago, COPD and hypertension who presented to ED on 11/29/24 for evaluation of shortness of breath. Patient c/o shortness of breath with a productive cough with yellow phlegm for the past 3 days. Patient reported occasional chills. Denied chest pain or palpitations. No fever. No other acute complaints reported. Patient was admitted for further care and pulmonary consultation is requested for kilo luation and management due to the above findings. Review of Systems: 14-point review of systems negative unless otherwise noted above. Past Medical History: Lung transplant 3 years ago, hypertension, COPD. Past Surgical History: Lung transplant 3 years ago (2021). Colostomy. Medications: Reviewed. Allergies: Azithromycin Doxycycline Levofloxacin. Family History: Heart attack Asthma Cardiovascular disease Diabetes mellitus Hypertension Glaucoma Social History: Nonsmoker. No alcohol or illicit drug use. Family History: FH: heart attack G8 MOTHER G8 FATHER Family history: Asthma 19 CHILD Family history: Cardiovascular disease 19 CHILD Family history: Diabetes mellitus G8 MOTHER G8 FATHER G8 BROTHER G8 BROTHER Family history: Hypertension G8 MOTHER G8 FATHER Glaucoma 19 CHILD Allergies: Coded Allergies: Azithromycin (Verified Allergy, Severe, 04/17/23) Doxycycline (Verified Allergy, Unknown, 10/21/19) Levofloxacin (Verified Allergy, Unknown, 10/21/19) Home Meds Active Scripts Ipratropium [place] Hfa (Atrovent Hfa) 17 Mcg Aer, 2 PUFF INH QID PRN for 30 Days, #12.9 GRAMS 1 Refill Prov:ELISABETH LAL MD 10/26/19 Reported Medications Testosterone (Testosterone) 50 Mg/5 Gm Gel 11/30/24 Vitamin B12 (Vitamin B-12) 1,000 Mcg/1 Ml Ij 11/30/24 Venlafaxine Hcl (Venlafaxine Hcl Er) 75 Mg Cap, 1 DAILY 11/30/24 Venlafaxine Hcl (Venlafaxine Hcl Er) 150 Mg Cap, 1 DAILY 11/30/24 Ipratropium-Albuterol (Ipratropium [place]/Albut) 1 Evelyn Evelyn 11/30/24 Albuterol Sulfate (Albuterol Sulfate Hfa) 108 Mcg/Act Aer 11/30/24 Acetaminophen (Acetaminophen) 325 Mg Tab 11/30/24 Prucalopride Succinate (Motegrity) 2 Mg Tab, 1 DAILY 11/30/24 Valganciclovir Hydrochloride (Valganciclovir) 450 Mg Tab, 2 DAILY 11/30/24 Folic Acid (Folic Acid) 1 Mg Tab 11/30/24 Atovaquone (Atovaquone) 750 Mg/5 Ml Cyndee, PO 11/30/24 Trazodone Hcl (Trazodone Hcl) 50 Mg Tab, 2 11/30/24 Cholecalciferol (Vitamin D-3 Super Strengt) 2,000 Unit Tab, 1 DAILY 11/30/24 Simethicone (Gas Relief) 80 Mg Chw 11/30/24 Buspirone Hcl (Buspirone Hcl) 5 Mg Tab, 1 11/30/24 Oxycodone Hcl (OXYCODONE HCL) 5 Mg Tb 11/30/24 Isavuconazonium Sulfate (Cresemba) 186 Mg Cap, 2 DAILY 11/30/24 Hydroxyzine Hcl (Hydroxyzine Hcl) 25 Mg Tab 11/30/24 Prednisone (Prednisone) Unknown Strength Tab, 5 MG PO DAILY for 1 Day, #10 TAB G 11/30/24 Loperamide-Simethicone (Loperamide Hydrochloride/ 2-125 mg) 1 Tab Tab, 1 TAB PO DAILY, TAB 11/30/24 Multiple Vitamin (Multivitamins) Tab, 1 TAB PO DAILY, #90 TAB 3 Refills 11/30/24 Prednisone (Prednisone) 10 Mg Dharmesh, 10 MG PO DAILY, PACK 11/30/24 Patients Own Medication (PATIENTS OWN MEDICATION) ., 372 MG PO DAILY PTS OWN MED-OBTAIN FROM PT AND SEND TO RX DRUG: FREQ: RX# EXP: DATE DISP: TECH: RP: 11/30/24 Tacrolimus (Envarsus Xr) 0.75 Mg Tab, 0.75 MG PO BID, TAB 11/30/24 Tacrolimus (Envarsus Xr) 1 Mg Tab, 1 MG PO DAILY, TAB 11/30/24 Patients Own Medication (PATIENTS OWN MEDICATION) ., 372 MG PO DAILY PTS OWN MED-OBTAIN FROM PT AND SEND TO RX DRUG: FREQ: RX# EXP: DATE DISP: TECH: RPH: 11/30/24 Albuterol Sulfate (VENTOLIN MDI) 90 Mcg Ih, 90 MCG IN Q6HP PRN for SHORTNESS OF BREATH for 30 Days, MCG 10/22/19 Beclomethasone Dipropionate (Qvar Redihaler) 40 Mcg/Act Aer, 40 MCG IN, AER 10/22/19 Prednisone (Prednisone) 10 Mg Tab, 15 MG PO DAILY, MG 10/22/19 Thiamine Hcl (Thiamine Hcl) 100 Mg Tab, 1 TAB PO DAILY, #30 TAB 3 Refills 04/16/16 Mycophenolate Mofetil (Mycophenolate Mofetil) 500 Mg Tab, 500 MG PO BID, TAB 04/16/16 Tamsulosin Hcl (Tamsulosin Hcl) 0.4 Mg Cap, 1 CAP PO DAILY, #30 CAP 5 Refills 04/16/16 Current Medications Current Medications Medications (Trade) Dose Ordered Sig/Zoraida Route PRN Reason Start Time Stop Time Status Last Admin Prednisone 15 mg DAILY PO 11/30/24 10:00 11/29/24 20:27 DC Tamsulosin HCl (Flomax) 0.4 mg QPM PO 11/30/24 18:00 11/30/24 17:10 Ceftriaxone Sodium 50 ml @ 100 mls/hr DAILY@09 IV 11/30/24 09:00 11/30/24 10:47 Tacrolimus (Prograf) 2.5 mg DAILY PO 11/30/24 10:00 11/30/24 10:46 Acetaminophen/ Hydrocodone Bitart ([place]lin 5/325MG Tab) 1 tab Q4HPRN PRN PO MODERATE PAIN (4-6 PAIN SCALE) 11/30/24 14:45 11/30/24 14:53 Lorazepam (Ativan Inj) 1 mg Q4HPRN PRN IV ANXIETY 11/30/24 16:30 11/30/24 17:10 Vital Signs Vital Signs Date Time Temp Pulse Resp B/P (MAP) Pulse Ox O2 Delivery O2 Flow Rate FiO2 11/30/24 21:00 97.9 116 18 144/99 (114) 94 97.9 11/30/24 20:00 Nasal Cannula* 3 32 Physical Exam Gen.: Patient lying in bed in no apparent distress. On supplemental oxygen. Head: Normocephalic, atraumatic. Eyes: EOMI/PERRLA. Ears: Normal hearing. Normal anatomy. Neck/trachea: Trachea midline, supple. Nose: Normal external anatomy. Mouth: Moist mucous membranes. Chest: Decreased air entry bilaterally. No wheezing or rhonchi. Cardiovascular: Positive S1, positive S2. Regular rate and rhythm. Abdomen: Positive bowel sounds in all 4 quadrants. Soft, non-tender, non- distended. : Deferred. Rectal: Deferred. Skin: Warm, dry. Intact. Extremities: 2+ radial pulses bilaterally. No lower extremity edema. Neuro: Awake, alert, oriented x3. No gross motor or sensory deficits. Cranial nerves II through XII intact. Gait not assessed. Labs/Diagnostic Data Labs Test 11/30/24 10:04 11/30/24 06:26 11/29/24 21:03 11/29/24 20:49 Range/Units White Blood Count 10.4 4.4-10.8 10^3/uL Red Blood Count 3.07 L 4.5-5.90 10^6/uL Hemoglobin 10.3 L 13.5-17.5 g/dL Hematocrit 31.8 L 41.0-53.0 % Mean Corpuscular Volume 103.7 H 80.0-100.0 fL Mean Corpuscular Hemoglobin 33.7 H 28.0-32.0 pg Mean Corpuscular Hemoglobin Concent 32.5 32.0-36.0 g/dL Red Cell Distribution Width 16.3 H 11.8-14.3 % Platelet Count 377 140-450 10^3/uL Mean Platelet Volume 7.8 6.9-10.8 fL Neutrophils (%) (Auto) 37.0-80.0 % Lymphocytes (%) (Auto) 10.0-50.0 % Monocytes (%) (Auto) 0.0-12.0 % Basophils (%) (Auto) 0.0-2.0 % Neutrophils # (Auto) 1.6-8.6 10 ^3/uL Lymphocytes # (Auto) 0.4-5.4 10 ^3/uL Monocytes # (Auto) 0-1.3 10 ^3/uL Differential Total Cells Counted 100.0 100 Neutrophils % (Manual) 86 H 37.0-80.0 Band Neutrophils % (Manual) 9 Lymphocytes % (Manual) 2 L 10.0-50.0 Monocytes % (Manual) 1 0-12 Eosinophils % (Manual) 0 0-7 Basophils % (Manual) 0 0.0-2.0 Metamyelocytes % (manual) 1 Myelocytes % (Manual) 0 Promyelocytes % (Manual) 1 Blast Cells % (Manual) 0 Reactive Lymphocytes 0 Platelet Estimate Adequate Macrocytosis Slight Sodium Level 141 136-145 mmol/L Potassium Level 5.3 H 3.5-5.1 mmol/L Chloride Level 107 98-107 mmol/L Carbon Dioxide Level 25 20-31 mmol/L Anion Gap 9 5-15 Blood Urea Nitrogen 23 9-23 mg/dL Creatinine 1.08 0.700-1.30 mg/dL Glomerular Filtration Rate Calc 79 >90 mL/min BUN/Creatinine Ratio 21.3 H 10.0-20.0 Serum Glucose 128 H 74-106 mg/dL Calcium Level 9.3 8.7-10.4 mg/dL Influenza Type A Antigen Negative Negative Influenza Type B Antigen Negative Negative SARS-CoV-2 Antigen (Rapid) Negative NEGATIVE Lactic Acid Level 1.3 0.4-2.0 mmol/L Test 11/29/24 17:39 11/29/24 14:45 Range/Units Urine Color Light-yellow Yellow Urine Clarity Clear Clear Urine pH 5.5 5.0-9.0 Urine Specific [place] 1.016 1.001-1.035 Urine Protein Trace H Negative Urine Ketones Negative Negative Urine Blood Negative Negative /uL Urine Nitrite Negative Negative Urine Bilirubin Negative Negative Urine Urobilinogen Normal Negative mg/dL Urine Leukocyte Esterase Negative Negative /uL Urine RBC <1 0 - 3 /hpf Urine Microscopic WBC 1 0-3 /HPF Urine Squamous Epithelial Cells None seen <5 /hpf Urine Bacteria None seen None Seen /hpf Urine Mucus Few None Seen Urine Glucose Normal Normal mg/dL Troponin I High Sensitivity 13 </=54 ng/L Assessment Impression: Acute on chronic hypoxic respiratory failure Dependence on supplemental oxygen Hx of lung transplant in 2021 Chronic steroid use Seasonal allergies Atrial fibrillation Plan: Supplemental oxygen Titrate to keep O2 sats above 92%. CXR on 11/29/24 shows mild atelectasis in the lung bases. No focal consolidation, pneumothorax or effusion. Continue bronchodilators. On Montelukast Continue antibiotics Incentive spirometry Eliquis BID Pain control Avoid oversedation Monitor renal function. Monitor electrolytes. Supplement as necessary. Monitor ins and outs. History of lung transplant, on immunosuppressants DVT prophylaxis. Prognosis: Poor given patient's multiple co-morbidities. Rest of plan per hospitalist and other consultants. Thank you, IQRA Stark, for allowing me to participate in this patient's care. Further recommendations will depend on the patient's clinical course. Please do not hesitate to contact me if you have any questions or concerns. This medical document was created using an electronic medical record system with [employer] dictation system. Although these documentations are being carefully reviewed, there may still be some phonetic and typographical changes. The errors are purely typographical, due to imperfection on the software program, and do not reflect any compromise in the patient's medical care. Plan discussed with: Patient, Other (RAUL Salcedo/IQRA Stark/) DELICIA EDGE MD Nov 30, 2024 23:08
[2024-11-30] MEDS ORDERED: ALBU108A5 (23:10)
[2024-11-30] MEDS ORDERED: BUSP5TAB51 (23:10)
[2024-11-30] MEDS ORDERED: ISAV1CAP2 (23:10)
[2024-11-30] MEDS ORDERED: SIME80CH (23:10)
[2024-11-30] MEDS ORDERED: CYA100I (23:10)
[2024-11-30] MEDS ORDERED: TEST2.5G (23:10)
[2024-11-30] MEDS ORDERED: HYDR-3682 (23:10)
[2024-11-30] MEDS ORDERED: VALG450T7 (23:10)
[2024-11-30] MEDS ORDERED: ATOV5SUS PO (23:10)
[2024-11-30] MEDS ORDERED: VENL75CA78 (23:10)
[2024-11-30] MEDS ORDERED: OXY5T (23:10)
[2024-11-30] MEDS ORDERED: VENL150C58 (23:10)
[2024-11-30] MEDS ORDERED: TRAZ-227 (23:10)
[2024-11-30] MEDS ORDERED: PRUC2TAB (23:10)
[2024-11-30] MEDS ORDERED: CHOL20003 (23:10)
[2024-11-30] MEDS ORDERED: FOLI-119 (23:10)
[2024-11-30] MEDS ORDERED: IPRA0.00 (23:10)
[2024-11-30] MEDS ORDERED: ACET-1882 (23:10)
[2024-12-01] VITALS (11 sets, daily range): BP systolic 125–144; BP diastolic 76–100; PULSE 97–122; RESP 18–20; TEMP 97.3–98.1; O2SAT 95–100
[2024-12-01] MEDS ORDERED: TAMSULOSIN HYDROCHLORIDE 0.4 MG CAP PO SCH (10:00)
[2024-12-01] MEDS ORDERED: IPRATROPIUM BROMIDE HFA AER IN PRN (10:00)
[2024-12-01] MEDS ORDERED: traZODone HCL 50 MG TAB PO SCH (10:00)
[2024-12-01] MEDS: MYCOPHENOLATE 500 MG TAB PO SCH (10:00)
[2024-12-01] MEDS ORDERED: ALBUTEROL SULF HFA 90MCG INH 200DOSE IN PRN (10:00)
--- NOTE | 2024-12-01 10:30 | DVHPN2 ---
Subjective The patient seen and examined at bedside. Complain of shortness for breath. at bedside to discuss his case with the real estate marketing coordinator of [facility]. Reviewed: Care Plan, H&P, Labs, Medications, Previous Orders, Radiology Changes from previous H/P or p: No Changes Objective Vitals Vital Signs Date Time Temp Pulse Resp B/P (MAP) Pulse Ox O2 Delivery O2 Flow Rate FiO2 12/01/24 09:00 98.1 97 20 140/76 (97) 97 98.1 12/01/24 07:06 Nasal Cannula 3.0 12/01/24 07:06 32 Intake/Output Intake and Output 12/01/24 07:00 Intake Total 1000 ml Output Total 3000 ml Balance -2000 ml Intake Oral 1000 ml Output Urine Total 3000 ml # Voids 4 # Bowel Movements 2 General Appearance: Alert, Oriented X3, Cooperative, No acute distress HEENT: Atraumatic, PERRLA, EOMI, Mucous membr. moist/pink Neck: Supple Lungs: Clear to auscultation, Normal air movement Cardiovascular: Regular rate, Normal S1, Normal S2, No murmurs, Gallops, Rubs Abdomen: Normal bowel sounds, Soft, No tenderness Neuro: Cranial nerves 3-12 NL Psych/Mental Status: Mental status NL Medications Current Medications Medications Dose Ordered Sig/Zoraida Route Start Time Stop Time Status Last Admin Dose Admin Apixaban 5 mg BID PO 11/29/24 22:00 12/01/24 09:00 5 MG Montelukast Sodium 10 mg HS PO 11/29/24 22:00 11/30/24 21:38 10 MG Tamsulosin HCl 0.4 mg QPM PO 11/30/24 18:00 11/30/24 17:10 0.4 MG Albuterol 2.5 mg Q6HPRN PRN NEB 11/29/24 19:30 11/30/24 19:42 2.5 MG Ipratropium [place] 0.5 mg Q6HPRN PRN NEB 11/29/24 19:30 11/30/24 19:42 0.5 MG Ondansetron HCl 4 mg Q4HP PRN IV 11/29/24 19:30 Acetaminophen 650 mg Q6HP PRN PO 11/29/24 19:30 11/29/24 23:16 650 MG Ceftriaxone Sodium 50 ml @ 100 mls/hr DAILY@09 IV 2/17/25 09:00 12/01/24 08:58 100 MLS/HR Prednisone 10 mg DAILY PO 11/29/24 20:30 12/01/24 09:00 10 MG Tacrolimus 2.5 mg DAILY PO 11/30/24 10:00 12/01/24 09:00 2.5 MG Acetaminophen/ Hydrocodone Bitart 1 tab Q4HPRN PRN PO 11/30/24 14:45 12/01/24 08:59 1 TAB Lorazepam 1 mg Q4HPRN PRN IV 11/30/24 16:30 11/30/24 17:10 1 MG Albuterol 90 mcg Q6HP PRN IN 12/01/24 10:00 Ipratropium [place] 2 QID PRN IN 12/01/24 10:00 Mycophenolate Mofetil 500 mg BID PO 12/01/24 10:00 Tamsulosin HCl 0.4 mg DAILY PO 12/01/24 10:00 Thiamine HCl 100 mg DAILY PO 12/01/24 10:00 Trazodone HCl 50 mg BID PO 12/01/24 10:00 Patient Own Medication 2 cap DAILY PO 12/02/24 10:00 UNV Patient Own Medication 10 mg DAILY PO 12/02/24 10:00 UNV Patient Own Medication 15 mg DAILY PO 12/02/24 10:00 UNV Patient Own Medication 372 DAILY PO 12/02/24 10:00 UNV Patient Own Medication 372 DAILY PO 12/02/24 10:00 UNV Patient Own Medication 1 cap DAILY PO 12/02/24 10:00 UNV Patient Own Medication 1 tab DAILY PO 12/02/24 10:00 UNV Patient Own Medication 0.75 mg BID PO 12/01/24 22:00 UNV Patient Own Medication 1 mg DAILY PO 12/02/24 10:00 UNV Patient Own Medication 2 tab DAILY PO 12/02/24 10:00 UNV Patient Own Medication 1 tab DAILY PO 12/02/24 10:00 UNV Patient Own Medication 1 tab DAILY PO 12/02/24 10:00 UNV Laboratory Results Laboratory Tests 11/30/24 06:26 11/30/24 10:04 Urinalysis Test 11/29/24 17:39 Urine Color Light-yellow (Yellow) Urine Clarity Clear (Clear) Urine pH 5.5 (5.0-9.0) Urine Specific [place] 1.016 (1.001-1.035) Urine Protein Trace (Negative) H Urine Ketones Negative (Negative) Urine Blood Negative /uL (Negative) Urine Nitrite Negative (Negative) Urine Bilirubin Negative (Negative) Urine Urobilinogen Normal mg/dL (Negative) Urine Leukocyte Esterase Negative /uL (Negative) Urine RBC <1 /hpf (0 - 3) Urine Microscopic WBC 1 /HPF (0-3) Urine Squamous Epithelial Cells None seen /hpf (<5) Urine Bacteria None seen /hpf (None Seen) Urine Mucus Few (None Seen) Urine Glucose Normal mg/dL (Normal) Labs and/or images reviewed: Labs reviewed by me Assessment/Plan Assessment/Plan Acute on chronic respiratory failure Pneumonia possible Gram-positive pneumonia COPD Status post lung transplant 2021 Atrial fibrillation Acute kidney injury Plan: Continuing current management. Continuing with IV antibiotic. Continuing with nebulizer. Continuing with Eliquis. We will monitor kidney function. We will restart his home medication including CellCept and tacrolimus. I called and discussed the case with Ms Rosenberg, LEASING PROFESSIONAL and coordinator of [facility] lung transplant program. I updated her on his progress and discuss with her regarding to plan of care. I anticipate to discharge the patient in 2-3 days. Today his oxygen back to baseline which is 3 L nasal cannula continuously. He had an oxygen with 3 L so at home. Will give patient IV pain med with morphine and PO norco for pain controlled. Addendum: I received a call later on the day, from a PA of his lung transplant program, Maria E Garcia, she stated that the transplant program wanted to get the patient transferred back to the ransplant unit of [facility]. She also stated that his had request to transfer him. She said in the past he had multiple hospitalization since 2021 after the lung transplant. They wanted monitor him this time. I will consult social work coordinator and initiate the transfer. This medical document was created using an electronic medical record system with [employer] computerized dictation system. Although this document has been carefully reviewed, there may still be some phonetic and typographical errors. These areas are purely typographical due to imperfections of the software programs, and do not reflect any compromise in the patient's medical care. Plan discussed with: Patient, Spouse My Orders Orders - BERTA MOORE MD Procedure Category Date Status Time Hydrocodone-Acet PHA 11/30/24 In Process 5/325mg Tab ([place] 14:45 Lorazepam 2mg/Ml Inj PHA 11/30/24 In Process (Ativan Inj) 16:30 Consult Orders: ELIZABETH 11/30/24 In Process 18:25 *Consult CONS 11/30/24 Transmitted / 18:25 Albuterol Inhaler PHA 12/01/24 In Process (Ventolin Hfa) 10:00 Ipratropium [place] PHA 12/01/24 In Process Hfa (Atrovent Hfa) 10:00 Mycophenolate Mofetil PHA 12/01/24 In Process (Cellcept) 10:00 Tamsulosin PHA 12/01/24 In Process Hydrochloride (Flomax) 10:00 Thiamine Tab PHA 12/01/24 In Process 10:00 Trazodone Hcl PHA 12/01/24 In Process (Desyrel) 10:00 (Nf) Isavuconazonium PHA 12/02/24 Logged Sulfate (Cresemba) 10:00 (Nf) Prednisone PHA 12/02/24 Logged 10:00 (Nf) Prednisone PHA 12/02/24 Logged 10:00 Patients Own PHA 12/02/24 Logged Medication 10:00 Patients Own PHA 12/02/24 Logged Medication 10:00 (Nf) Cholecalciferol PHA 12/02/24 Logged (Vitamin D-3 Super 10:00 (NF) PHA 12/02/24 Logged Loperamide-Simethicone 10:00 (Nf) Tacrolimus PHA 12/01/24 Logged (Envarsus Xr) 22:00 (Nf) Tacrolimus PHA 12/02/24 Logged (Envarsus Xr) 10:00 (Nf) Valganciclovir PHA 12/02/24 Logged Hydrochloride (Valga 10:00 (Nf) Venlafaxine Hcl PHA 12/02/24 Logged (Venlafaxine Hcl Er 10:00 (Nf) Venlafaxine Hcl PHA 12/02/24 Logged (Venlafaxine Hcl Er 10:00 Date of Service: Dec 01, 2024 Billing Provider: BERTA MOORE MD Common Visit Codes: [id number] INP/OBS CARE(HIGH) BERTA MOORE MD Dec 01, 2024 10:30
[2024-12-01] MEDS: THIAMINE HCL 100 MG TAB PO SCH (11:24)
[2024-12-01] MEDS: busPIRone HCL 10 MG TAB PO ONE (11:24)
[2024-12-01] MEDS: predniSONE 5 MG TAB PO SCH (12:11)
[2024-12-01] MEDS: MONTELUKAST SODIUM 10 MG TAB PO ONE (13:55)
[2024-12-01] MEDS: PATIENTS OWN MEDICATION PO ONE ×3 (16:00→16:47)
[2024-12-01] MEDS: ASPirin 81 mg TAB PO ONE (21:34)
[2024-12-01] MEDS: traZODone HCL 50 MG TAB PO SCH (21:35)
[2024-12-01] MEDS: TACROLIMUS 0.75 MG PO SCH (21:35)
[2024-12-01] MEDS: TEMAZEPAM 15 MG CAP PO ONE (21:36)
[2024-12-01] MEDS: TAMSULOSIN HYDROCHLORIDE 0.4 MG CAP PO SCH (21:36)
--- NOTE | 2024-12-01 22:07 | DVHPN2 ---
Progress Note - Dictate Date Seen: Dec 01, 2024 Medical Necessity Reason Pt with a Central, PICC or Fol: No Subjective Patient seen and examined at bedside. Remains on supplemental oxygen Overnight events reviewed. vital signs Vital Sign Date Time Temp Pulse Resp B/P (MAP) Pulse Ox O2 Delivery O2 Flow Rate FiO2 12/01/24 21:00 118 20 99 12/01/24 20:52 Nasal Cannula* 3 32 12/01/24 17:00 97.5 138/99 (112) 97.5 Total Intake and Output 11/30/24 11/30/24 12/01/24 15:00 23:00 07:00 Intake Total 1000 ml Output Total 3000 ml Balance -2000 ml medications Current Medications Medications Dose Ordered Sig/Zoraida Route Start Time Stop Time Status Last Admin Dose Admin Apixaban 5 mg BID PO 11/29/24 22:00 12/01/24 21:36 5 MG Montelukast Sodium 10 mg HS PO 11/29/24 22:00 12/01/24 21:36 10 MG Albuterol 2.5 mg Q6HPRN PRN NEB 11/29/24 19:30 12/01/24 20:52 2.5 MG Ipratropium [place] 0.5 mg Q6HPRN PRN NEB 11/29/24 19:30 12/01/24 20:52 0.5 MG Ondansetron HCl 4 mg Q4HP PRN IV 11/29/24 19:30 Acetaminophen 650 mg Q6HP PRN PO 11/29/24 19:30 12/01/24 15:06 650 MG Ceftriaxone Sodium 50 ml @ 100 mls/hr DAILY@09 IV 11/30/24 09:00 12/01/24 08:58 100 MLS/HR Acetaminophen/ Hydrocodone Bitart 1 tab Q4HPRN PRN PO 11/30/24 14:45 12/01/24 08:59 1 TAB Lorazepam 1 mg Q4HPRN PRN IV 11/30/24 16:30 12/01/24 18:52 1 MG Mycophenolate Mofetil 500 mg BID PO 12/01/24 10:00 Thiamine HCl 100 mg DAILY PO 12/01/24 10:00 12/01/24 11:24 100 MG Patient Own Medication 2 cap DAILY PO 12/02/24 10:00 Patient Own Medication 10 mg DAILY PO 12/02/24 10:00 UNV Patient Own Medication 15 mg DAILY PO 12/02/24 10:00 UNV Patient Own Medication 372 DAILY PO 12/02/24 10:00 UNV Patient Own Medication 372 DAILY PO 12/02/24 10:00 UNV Patient Own Medication 1 cap DAILY PO 12/02/24 10:00 UNV Patient Own Medication 1 tab DAILY PO 12/02/24 10:00 Patient Own Medication 0.75 mg BID PO 12/01/24 22:00 12/01/24 21:35 0.75 MG Patient Own Medication 1 mg DAILY PO 12/02/24 10:00 Patient Own Medication 2 tab DAILY PO 12/02/24 10:00 Patient Own Medication 1 tab DAILY PO 12/02/24 10:00 UNV Patient Own Medication 1 tab DAILY PO 12/02/24 10:00 UNV Prednisone 10 mg DAILY PO 12/02/24 10:00 Cancel Trazodone HCl 100 mg HS PO 12/01/24 22:00 12/01/24 21:35 100 MG Prednisone 5 mg Tu PO 12/01/24 12:11 Prednisone 5 mg Th PO 12/03/24 12:12 Prednisone 5 mg Sa PO 12/05/24 12:13 Prednisone 10 mg MWF PO 12/02/24 10:00 Prednisone 10 mg [place] PO 12/06/24 12:16 Cholecalciferol 2,000 unit DAILY PO 12/02/24 10:00 Venlafaxine HCl 150 mg DAILY PO 12/02/24 10:00 Venlafaxine HCl 75 mg DAILY PO 12/02/24 10:00 Tamsulosin HCl 0.4 mg HS PO 12/01/24 22:00 12/01/24 21:36 0.4 MG objective Gen.: Patient lying in bed in no apparent distress. On supplemental oxygen. Head: Normocephalic, atraumatic. Eyes: EOMI/PERRLA. Ears: Normal hearing. Normal anatomy. Neck/trachea: Trachea midline, supple. Nose: Normal external anatomy. Mouth: Moist mucous membranes. Chest: Decreased air entry bilaterally. No wheezing or rhonchi. Cardiovascular: Positive S1, positive S2. Regular rate and rhythm. Abdomen: Positive bowel sounds in all 4 quadrants. Soft, non-tender, non- distended. : Deferred. Rectal: Deferred. Skin: Warm, dry. Intact. Extremities: 2+ radial pulses bilaterally. No lower extremity edema. Neuro: Awake, alert, oriented x3. No gross motor or sensory deficits. Cranial nerves II through XII intact. Gait not assessed. laboratory and microbiology Laboratory Tests 11/30/24 10:04 11/30/24 06:26 Test 11/30/24 06:26 Range/Units Serum Glucose 128 H 74-106 mg/dL Assessment/Plan Impression: Acute on chronic hypoxic respiratory failure Dependence on supplemental oxygen Hx of lung transplant in 2021 Chronic steroid use Seasonal allergies Atrial fibrillation Events: Remains on supplemental oxygen, 3 LPM NC Taper O2 as tolerated Continue bronchodilators Continue Singulair Continue antibiotics On Eliquis BID. Hx of lung transplant - on immunosuppressants. Note, pt is allergic to azithromycin, doxycycline and levofloxacin. Chest x-ray imaging report reviewed; No acute opacities. Plan to obtain CT chest w/o contrast. Updated at bedside. Labs and imaging reviewed. Rest of plan as noted below. Plan: Supplemental oxygen Titrate to keep O2 sats above 92%. CXR on 11/29/24 shows mild atelectasis in the lung bases. No focal consolidation, pneumothorax or effusion. Continue bronchodilators. On Montelukast Continue antibiotics Incentive spirometry Eliquis BID Pain control Avoid oversedation Monitor renal function. Monitor electrolytes. Supplement as necessary. Monitor ins and outs. History of lung transplant, on immunosuppressants DVT prophylaxis. Prognosis: Guarded given patient's multiple co-morbidities. Rest of plan per hospitalist and other consultants. Thank you, IQRA Stark, for allowing me to participate in this patient's care. Further recommendations will depend on the patient's clinical course. Please do not hesitate to contact me if you have any questions or concerns. This medical document was created using an electronic medical record system with [employer] dictation system. Although these documentations are being carefully reviewed, there may still be some phonetic and typographical changes. The errors are purely typographical, due to imperfection on the software program, and do not reflect any compromise in the patient's medical care. Plan discussed with: Patient, Spouse, Other (RAUL Salcedo) DELICIA EDGE MD Dec 01, 2024 22:07
--- NOTE | 2024-12-01 22:29 | DVH ---
Procedure: CT CHEST WITHOUT CONTRAST Reason for study/Clinical History: respiratory failure Comparison Study: None available at time of dictation. Exam Date: 12/01/2024 09:45 PM TECHNIQUE: Multidetector CT of the chest was performed from the lung apices to the upper abdomen with out the use of intravenous contract. Axial, coronal and sagittal multiplanar reformats were performed . Radiation Dose Information: CT Dose: CTDI volume is 7.85 mGy. Dose-length product is 282.75 mGy*cm The dose indicators for CT are the volume Computed Tomography (CT) Dose Index (CTDIvol) and the Dose Length Product (DLP), and are measured in units of mGy and mGy-cm, respectively. These indicators are not patient dose, but values generated from the CT scanner acquisition factors. The report includes radiation exposure data for exposures received during this examination. FINDINGS: Lower neck: Normal thyroid. Lungs: Bilateral perihilar peribronchial thickening Heart/Vascular Structures: Normal heart size. No pericardial effusion. Lymph Nodes: No adenopathy Pleura: No pleural effusion or significant pneumothorax. Musculoskeletal: No acute osseous abnormality. Soft tissues: Normal. Upper abdomen: Limited portions of the upper abdomen are unremarkable. Hepatic cysts. IMPRESSION: 1. Bilateral perihilar peribronchial thickening. Recommend follow-up study. 2. Sternal wire sutures in the mid sternum. 3. Hepatic cysts. Radiation optimization: All CT scans at this facility use at least one of these dose optimization shruthi hniques: automated exposure control mA and/or kV adjustment per patient size (includes targeted exam s where dose is matched to clinical indication) or iterative reconstruction.
[2024-12-02] VITALS (39 sets, daily range): BP systolic 74–130; BP diastolic 47–79; PULSE 67–134; RESP 16–48; TEMP 97.2–98.7; O2SAT 91–100
[2024-12-02] MEDS: IPRATROPIUM BROM 0.5 MG/2.5ML INH SOL NEB PRN (00:23)
[2024-12-02] MEDS: ALBUTEROL SULF 2.5 MG/0.5ML(0.5%) NEB SOLN NEB PRN (00:23)
[2024-12-02 00:34] LABS: Chloride 101 mmol/L (98-107); Potassium 5.1 mmol/L (3.5-5.1); Sodium 138 mmol/L (136-145)
[2024-12-02 00:35] LABS: Anion Gap 9 (5-15); Calcium 9.5 mg/dL (8.7-10.4); Carbon Dioxide 28 mmol/L (20-31)
[2024-12-02 00:43] LABS: Blood Urea Nitrogen 29 mg/dL (9-23); Glucose 146 mg/dL (74-106)
[2024-12-02 07:08] LABS: Anion Gap 10 (5-15); Carbon Dioxide 30 mmol/L (20-31); Chloride 99 mmol/L (98-107); Potassium 4.8 mmol/L (3.5-5.1); Sodium 139 mmol/L (136-145)
[2024-12-02 07:09] LABS: Calcium 9.7 mg/dL (8.7-10.4)
[2024-12-02 07:14] LABS: BUN/Creatinine Ratio 29.3 (10.0-20.0); Glucose 92 mg/dL (74-106)
[2024-12-02 07:16] LABS: Blood Urea Nitrogen 27 mg/dL (9-23)
[2024-12-02] MEDS: LOPERAMIDE HYDROCHLORIDE PO SCH (09:17)
[2024-12-02] MEDS ORDERED: CHOLECALCIFEROL PO SCH (10:00)
[2024-12-02] MEDS ORDERED: PREDNISONE 15 MG PO SCH (10:00)
[2024-12-02] MEDS: PATIENTS OWN MEDICATION PO ONE (10:00)
[2024-12-02] MEDS ORDERED: predniSONE 5 MG TAB PO SCH ×2 (10:00)
[2024-12-02] MEDS ORDERED: PREDNISONE 10 MG PO SCH (10:00)
[2024-12-02] MEDS ORDERED: VENLAFAXINE HCL PO SCH ×2 (10:00)
[2024-12-02] MEDS ORDERED: PATIENTS OWN MEDICATION PO SCH ×2 (10:00)
--- NOTE | 2024-12-02 10:01 | DVH ---
CHEST RADIOGRAPH Indication: sob Technique: Single frontal view of the chest was obtained COMPARISON: XY CHEST PORTABLE on DOS: 11/29/24, CHEST PORTABLE on DOS: 10/26/19 FINDINGS: Lines and Tubes: None Lungs: Patchy bilateral airspace disease. Pleura: No effusion. No pneumothorax. Cardiomediastinal contours: Unremarkable Bones: Unremarkable IMPRESSION: Patchy bilateral airspace disease.
--- NOTE | 2024-12-02 10:06 | ECG ---
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
[2024-12-02] MEDS: ALBUTEROL SULF 2.5 MG/0.5ML(0.5%) NEB SOLN NEB ONE (10:14)
[2024-12-02] MEDS: VALGANCICLOVIR HYDROCHLORIDE 450 MG PO SCH (10:20)
[2024-12-02] MEDS: CHOLECALCIFEROL (VITD3) 1,000UNIT=25mCg TAB PO SCH (10:22)
[2024-12-02] MEDS: ISAVUCONAZONIUM SULFATE 186 MG PO SCH (10:23)
[2024-12-02] MEDS: predniSONE 5 MG TAB PO SCH (10:40)
[2024-12-02] MEDS: FUROSEMIDE 40 MG/4 ML VIAL IV ONE (10:42)
[2024-12-02] MEDS: VENLAFAXINE HCL 37.5mg XR cap PO SCH ×2 (10:43→11:10)
[2024-12-02 10:56] LABS: Base Excess 3.6 mmol/L (-2.0-3.0)
[2024-12-02] MEDS: TACROLIMUS 1 MG PO SCH (11:11)
[2024-12-02] MEDS ORDERED: VANCOMYCIN PER PHARMACY 0 MG IV SCH (11:15)
[2024-12-02] MEDS ORDERED: POLYETHYLENE GLYCOL 17 GM PWDR PO PRN (11:30)
[2024-12-02] MEDS: ATOVAQUONE 750 MG/5 ML PO SCH (11:30)
[2024-12-02] MEDS: POLYETHYLENE GLYCOL 17 GM PWDR PO ONE (11:30)
[2024-12-02] MEDS ORDERED: hydrOXYzine 25 MG TAB or CAP PO PRN ×2 (11:45→14:45)
[2024-12-02] MEDS: ALBUTEROL SULF 2.5 MG/0.5ML(0.5%) NEB SOLN NEB SCH (12:00)
[2024-12-02] MEDS ORDERED: LORazepam 2MG/ML-1ML VIAL IV PRN (12:15)
[2024-12-02] MEDS: IPRATROPIUM BROM 0.5 MG/2.5ML INH SOL NEB SCH (12:28)
[2024-12-02] MEDS ORDERED: TACROLIMUS 0.5 MG CAP PO SCH (13:00)
[2024-12-02] MEDS: VANCOMYCIN 1.25GM/250ML 250 ML IV ONE (13:03)
--- NOTE | 2024-12-02 13:58 | DVH ---
Exam: CT CT AB PEL WO CON-NO ORAL OR IV History: Questionable obstruction Comparison Study: None Technique: Multidetector spiral CT of the abdomen was performed from lung bases to pubic symphysis. Imaging was performed without IV contrast. Axial, coronal and sagittal multiplanar reformats were ob tained from the axial data set by the technologist. Radiation Dose : 1. Abdomen/Pelvis: CTDIvol 11.65 mGy, DLP 633.23 mGy*cm. Findings: Evaluation of solid organs is limited due to lack of intravenous contrast use. Lung Bases: Bronchiectasis, peribronchial thickening and multifocal airspace opacities. Findings are suggestive of severe atypical pneumonia. Small right pleural effusion. Cardiomegaly. Coronary artery calcifications. Vascular calcifications of the aorta. Liver: Multiple bilobar hepatic cysts. Gallbladder and Biliary Tree: Unremarkable Spleen: Unremarkable Pancreas: The pancreas is grossly normal in appearance. Adrenal Glands: Unremarkable Kidneys: No hydronephrosis. Multiple bilateral nonobstructing renal stones measuring up to 0.3 cm. Bladder: Grossly unremarkable for degree of distention. Bowel: Distended stomach. Post partial colectomy. Diverticulosis. Left lower quadrant colostomy. No rmal appendix is visualized in the right lower quadrant without findings of appendicitis. Moderate vo lume colonic stool. Ascites: Absent Lymphadenopathy: No mesenteric, retroperitoneal or periportal lymphadenopathy. Abdominal Wall and Mesentery: Unremarkable. Vasculature: The visualized abdominal aorta is normal in size and caliber. Evaluation of abdominal a nd pelvic vessels is limited due to lack of intravenous contrast. Pelvic Organs: Unremarkable Musculoskeletal: No aggressive focal bony lesions, acute fractures or dislocation. IMPRESSION: No bowel obstruction. Distended stomach. Moderate volume colonic stool. Severe atypical pneumonia, partially imaged. Radiation optimization: All CT scans at this facility use at least one of these dose optimization shruthi hniques: automated exposure control mA and/or kV adjustment per patient size (includes targeted exam s where dose is matched to clinical indication) or iterative reconstruction.
[2024-12-02] MEDS: busPIRone HCL 10 MG TAB PO SCH (15:38)
[2024-12-02] MEDS: MEROPENEM 1GM IVPB 50 ML IV SCH (16:30)
--- NOTE | 2024-12-02 17:19 | DVHPN2 ---
Subjective Patient reports having worsening shortness of breath, general fatigue. Reviewed: Care Plan, H&P, Labs, Medications, Previous Orders, Radiology Changes from previous H/P or p: No Changes General: Per HPI Objective Vitals Vital Signs Date Time Temp Pulse Resp B/P (MAP) Pulse Ox O2 Delivery O2 Flow Rate FiO2 12/02/24 16:01 128 94 Facial BiPAP Mask 40 12/02/24 15:25 42 12/02/24 15:25 3 12/02/24 12:19 97.4 99/59 (72) 97.4 Intake/Output Intake and Output 12/02/24 07:00 Intake Total 1615 ml Output Total 1300 ml Balance 315 ml Intake Oral 1615 ml Output Urine Total 1300 ml # Bowel Movements 1 General Appearance: Alert, Oriented X3, Cooperative, No acute distress HEENT: Atraumatic, PERRLA, EOMI, Mucous membr. moist/pink Neck: Supple Lungs: Clear to auscultation, Normal air movement Cardiovascular: Regular rate, Normal S1, Normal S2, No murmurs, Gallops, Rubs Abdomen: Normal bowel sounds, Soft, No tenderness Neuro: Cranial nerves 3-12 NL Skin: Dry, Intact Psych/Mental Status: Mental status NL Medications Current Medications Medications Dose Ordered Sig/Zoraida Route Start Time Stop Time Status Last Admin Dose Admin Apixaban 5 mg BID PO 11/29/24 22:00 12/02/24 10:22 5 MG Montelukast Sodium 10 mg HS PO 11/29/24 22:00 12/01/24 21:36 10 MG Ondansetron HCl 4 mg Q4HP PRN IV 11/29/24 19:30 Acetaminophen 650 mg Q6HP PRN PO 11/29/24 19:30 12/01/24 15:06 650 MG Acetaminophen/ Hydrocodone Bitart 1 tab Q4HPRN PRN PO 11/30/24 14:45 12/01/24 08:59 1 TAB Thiamine HCl 100 mg DAILY PO 12/01/24 10:00 12/02/24 10:40 100 MG Patient Own Medication 2 cap DAILY PO 12/02/24 10:00 12/02/24 10:23 2 CAP Patient Own Medication 10 mg DAILY PO 12/02/24 10:00 UNV Patient Own Medication 15 mg DAILY PO 12/02/24 10:00 UNV Patient Own Medication 372 DAILY PO 12/02/24 10:00 UNV Patient Own Medication 372 DAILY PO 12/02/24 10:00 UNV Patient Own Medication 1 cap DAILY PO 12/02/24 10:00 UNV Patient Own Medication 2 tab DAILY PO 12/02/24 10:00 12/02/24 10:20 2 TAB Patient Own Medication 1 tab DAILY PO 12/02/24 10:00 UNV Patient Own Medication 1 tab DAILY PO 12/02/24 10:00 UNV Prednisone 10 mg DAILY PO 12/02/24 10:00 Cancel Trazodone HCl 100 mg HS PO 12/01/24 22:00 12/01/24 21:35 100 MG Prednisone 10 mg MWF PO 12/02/24 10:00 12/02/24 10:40 10 MG Prednisone 10 mg [place] PO 12/06/24 12:16 Cholecalciferol 2,000 unit DAILY PO 12/02/24 10:00 12/02/24 10:22 2,000 UNIT Venlafaxine HCl 150 mg DAILY PO 12/02/24 10:00 12/02/24 11:10 150 MG Venlafaxine HCl 75 mg DAILY PO 12/02/24 10:00 12/02/24 10:43 75 MG Tamsulosin HCl 0.4 mg HS PO 12/01/24 22:00 12/01/24 21:36 0.4 MG Albuterol 2.5 mg Q4HPRN PRN NEB 12/02/24 00:00 12/02/24 15:25 2.5 MG Ipratropium [place] 0.5 mg Q4HPRN PRN NEB 12/02/24 00:00 12/02/24 07:38 0.5 MG Vancomycin HCl 0 ml @ 0 mls/hr UD IV 12/02/24 11:15 Albuterol 2.5 mg Q6HWA NEB 12/02/24 12:00 Ipratropium [place] 0.5 mg Q6HWA NEB 12/02/24 12:00 12/02/24 12:28 0.5 MG Patient Own Medication 1 DAILY@0800 PO 12/03/24 08:00 Patient Own Medication 1 DAILY PO 12/02/24 11:30 Polyethylene Glycol 17 gm DAILYPRN PRN PO 12/02/24 11:30 Patient Own Medication 1 DAILY PO 12/03/24 10:00 Meropenem 50 ml @ 17 mls/hr Q8HR IV 12/02/24 14:00 12/02/24 16:30 17 MLS/HR Prednisone 5 mg TUTHSA PO 12/03/24 10:00 Multivitamins 1 tab DAILY PO 12/03/24 10:00 Folic Acid 5 mg DAILY PO 12/03/24 10:00 Patient Own Medication 2 DAILY@0800 PO 12/03/24 08:00 Hydroxyzine Pamoate 25 mg Q4HP PRN PO 12/02/24 14:45 Buspirone HCl 5 mg Q8HR PO 12/02/24 15:15 12/02/24 15:38 5 MG Laboratory Results Laboratory Tests 11/30/24 10:04 12/02/24 06:21 Chemistry Test 12/01/24 23:59 12/02/24 06:21 Calcium Level 9.5 mg/dL (8.7-10.4) 9.7 mg/dL (8.7-10.4) Coagulation Test 12/01/24 23:59 D-Dimer, Quantitative 0.27 mg/L FEU (0.0-0.49) Cardiac Markers Test 12/01/24 23:59 B-Type Natriuretic Peptide 97.33 pg/mL (0-100) Urinalysis Test 11/29/24 17:39 Urine Color Light-yellow (Yellow) Urine Clarity Clear (Clear) Urine pH 5.5 (5.0-9.0) Urine Specific [place] 1.016 (1.001-1.035) Urine Protein Trace (Negative) H Urine Ketones Negative (Negative) Urine Blood Negative /uL (Negative) Urine Nitrite Negative (Negative) Urine Bilirubin Negative (Negative) Urine Urobilinogen Normal mg/dL (Negative) Urine Leukocyte Esterase Negative /uL (Negative) Urine RBC <1 /hpf (0 - 3) Urine Microscopic WBC 1 /HPF (0-3) Urine Squamous Epithelial Cells None seen /hpf (<5) Urine Bacteria None seen /hpf (None Seen) Urine Mucus Few (None Seen) Urine Glucose Normal mg/dL (Normal) Blood Gas Results Test 12/02/24 10:37 Arterial Blood pH 7.390 (7.350-7.450) FiO2 % 34.0 Labs and/or images reviewed: Labs reviewed by me, Image(s) reviewed by me Assessment/Plan Assessment/Plan Impression: -acute hypoxic respiratory failure -history of pulmonary fibrosis, status post bilateral lung transplant three years ago -questionable aspiration pneumonia -COPD -atrial fibrillation -probable sepsis Plan: -change antibiotic therapy to meropenem, vancomycin. Continue antiviral, antifungal -bronchodilators -continue inhaled corticosteroids -continue immunosuppression -continue anticoagulation with Eliquis -transfer to ICU -CT angiogram of the abdomen and pelvis: Reviewed -long discussion made with the patient, son, spouse regarding declining respiratory/overall clinical status. At this time we will attempt to use BiPAP, with reassessment for persistent respiratory failure. Patient may require intubation. This was also discussed with pulmonology, Dr. Vasquez. Critical care time spent with patient discussing and formulating plan of care: 90 minutes. This does not include time spent performing procedures. This medical document was created using an electronic medical record system with [employer] dictation system. Although this document has been carefully reviewed, there may still be some phonetic and typographical errors. These areas are purely typographical due to imperfections of the software programs, and do not reflect any compromise in the patient's medical care. 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 Procedure Category Date Status Time Respiratory Culture GAYATRI 12/02/24 Logged W/ Gs 11:15 Vancomycin Per PHA 12/02/24 In Process Pharmacy 11:15 Albuterol Medneb PHA 12/02/24 In Process (Ventolin Medneb) 12:00 Ipratropium Medneb PHA 12/02/24 In Process (Atrovent Medneb) 12:00 Ct Ab Pel Wo Con-No CT 12/02/24 Resulted Oral Or Iv 11:30 Meropenem 1gm Ivpb PHA 12/02/24 In Process (Merrem 1gm/ Ns) 14:00 Hydroxyzine Oral PHA 12/02/24 In Process (Vistaril Oral) 14:45 Cardiac DIET 12/02/24 Transmitted Diet-2gna,Lofat,Lochol Dinner BIPAP RT 12/02/24 Logged 15:46 Abg W/ Co-Ox RT 12/02/24 Logged 16:45 Insert/Manage Urinary ELIZABETH 12/02/24 In Process Catheter 16:47 Date of Service: Dec 02, 2024 Billing Provider: BEBA ELLER NP Common Visit Codes: 60292-IXESAVDA CARE 30-74 MIN, 22774-ADAJYIIQ CARE-EACH +30MIN BEBA ELLER NP Dec 02, 2024 17:19
[2024-12-02] MEDS ORDERED: ETOMIDATE (2MG/ML) 20ML VIAL IV ONE ×2 (17:34→19:28)
[2024-12-02] MEDS ORDERED: ROCURONIUM 10MG/ML 10ML VIAL IV ONE ×2 (17:35→19:28)
[2024-12-02 17:37] LABS: Base Excess 1.3 mmol/L (-2.0-3.0)
[2024-12-02] MEDS ORDERED: fentaNYL Drip 2500mCg/250mlNS 0 ML IV ONE (18:02)
[2024-12-02] MEDS ORDERED: MIDAZOLAM DRIP 50 mg/50mL 0 ML IV ONE (18:03)
[2024-12-02] MEDS ORDERED: PROPOFOL 0 ML IV ONE (18:03)
[2024-12-02] MEDS ORDERED: NOREPINEPHRINE 8 MG/250ML KIT 0 ML IV ONE (18:03)
[2024-12-02] MEDS ORDERED: MORPHINE SULFATE INJ 2 MG/ml SYRG IV PRN (18:15)
[2024-12-02] MEDS ORDERED: NOREPINEPHRINE 8 MG/250ML KIT 250 ML IV ONE (19:28)
[2024-12-02] MEDS: NOREPINEPHRINE 8 MG/250ML KIT 250 ML IV SCH (19:30)
[2024-12-02] MEDS ORDERED: NOREPINEPHRINE 8 MG/250ML KIT 250 ML IV SCH (20:00)
[2024-12-02] MEDS ORDERED: VANCOMYCIN 750MG KIT 100 ML IV SCH (21:00)
--- NOTE | 2024-12-02 23:02 | DVHPN2 ---
Progress Note - Dictate Date Seen: Dec 02, 2024 Medical Necessity Reason Pt with a Central, PICC or Fol: No Subjective Patient seen and examined at bedside. Currently on BiPAP Overnight events reviewed. vital signs Vital Sign Date Time Temp Pulse Resp B/P (MAP) Pulse Ox O2 Delivery O2 Flow Rate FiO2 12/02/24 22:12 119 109/72 99 Facial BiPAP Mask 40 12/02/24 20:00 42 0 12/02/24 18:45 97.8 97.8 Total Intake and Output 12/01/24 12/01/24 12/02/24 15:00 23:00 07:00 Intake Total 360 ml 980 ml 275 ml Output Total 1000 ml 300 ml Balance 360 ml -20 ml -25 ml medications Current Medications Medications Dose Ordered Sig/Zoraida Route Start Time Stop Time Status Last Admin Dose Admin Apixaban 5 mg BID PO 11/29/24 22:00 12/02/24 10:22 5 MG Montelukast Sodium 10 mg HS PO 11/29/24 22:00 12/01/24 21:36 10 MG Ondansetron HCl 4 mg Q4HP PRN IV 11/29/24 19:30 Acetaminophen 650 mg Q6HP PRN PO 11/29/24 19:30 12/01/24 15:06 650 MG Acetaminophen/ Hydrocodone Bitart 1 tab Q4HPRN PRN PO 11/30/24 14:45 Hold 12/01/24 08:59 1 TAB Thiamine HCl 100 mg DAILY PO 12/01/24 10:00 12/02/24 10:40 100 MG Patient Own Medication 2 cap DAILY PO 12/02/24 10:00 12/02/24 10:23 2 CAP Patient Own Medication 10 mg DAILY PO 12/02/24 10:00 UNV Patient Own Medication 15 mg DAILY PO 12/02/24 10:00 UNV Patient Own Medication 372 DAILY PO 12/02/24 10:00 UNV Patient Own Medication 372 DAILY PO 12/02/24 10:00 UNV Patient Own Medication 1 cap DAILY PO 12/02/24 10:00 UNV Patient Own Medication 2 tab DAILY PO 12/02/24 10:00 12/02/24 10:20 2 TAB Patient Own Medication 1 tab DAILY PO 12/02/24 10:00 UNV Patient Own Medication 1 tab DAILY PO 12/02/24 10:00 UNV Prednisone 10 mg DAILY PO 12/02/24 10:00 Cancel Trazodone HCl 100 mg HS PO 12/01/24 22:00 12/02/24 19:03 100 MG Prednisone 10 mg MWF PO 12/02/24 10:00 12/02/24 10:40 10 MG Prednisone 10 mg [place] PO 12/06/24 12:16 Cholecalciferol 2,000 unit DAILY PO 12/02/24 10:00 12/02/24 10:22 2,000 UNIT Venlafaxine HCl 150 mg DAILY PO 12/02/24 10:00 12/02/24 11:10 150 MG Venlafaxine HCl 75 mg DAILY PO 12/02/24 10:00 12/02/24 10:43 75 MG Tamsulosin HCl 0.4 mg HS PO 12/01/24 22:00 12/01/24 21:36 0.4 MG Albuterol 2.5 mg Q4HPRN PRN NEB 12/02/24 00:00 12/02/24 15:25 2.5 MG Ipratropium [place] 0.5 mg Q4HPRN PRN NEB 12/02/24 00:00 12/02/24 07:38 0.5 MG Vancomycin HCl 0 ml @ 0 mls/hr UD IV 12/02/24 11:15 Albuterol 2.5 mg Q6HWA NEB 12/02/24 12:00 12/02/24 18:00 2.5 MG Ipratropium [place] 0.5 mg Q6HWA NEB 12/02/24 12:00 12/02/24 18:00 0.5 MG Patient Own Medication 1 DAILY@0800 PO 12/03/24 08:00 Patient Own Medication 1 DAILY PO 12/02/24 11:30 Polyethylene Glycol 17 gm DAILYPRN PRN PO 12/02/24 11:30 Patient Own Medication 1 DAILY PO 12/03/24 10:00 Meropenem 50 ml @ 17 mls/hr Q8HR IV 12/02/24 14:00 12/02/24 22:00 17 MLS/HR Prednisone 5 mg TUTHSA PO 12/03/24 10:00 Multivitamins 1 tab DAILY PO 12/03/24 10:00 Folic Acid 5 mg DAILY PO 12/03/24 10:00 Patient Own Medication 2 DAILY@0800 PO 12/03/24 08:00 Hydroxyzine Pamoate 25 mg Q4HP PRN PO 12/02/24 14:45 Buspirone HCl 5 mg Q8HR PO 12/02/24 15:15 12/02/24 15:38 5 MG Vancomycin HCl 100 ml @ 100 mls/hr Q8H IV 12/02/24 21:00 Morphine Sulfate 1 mg Q3HP PRN IV 12/02/24 18:15 Norepinephrine Bitartrate 250 ml @ 3.75 mls/hr Q24H IV 12/02/24 19:30 12/02/24 19:30 3.75 MLS/HR objective Gen.: Patient lying in bed in no apparent distress. On BiPAP Head: Normocephalic, atraumatic. Eyes: EOMI/PERRLA. Ears: Normal hearing. Normal anatomy. Neck/trachea: Trachea midline, supple. Nose: Normal external anatomy. Mouth: Moist mucous membranes. Chest: Decreased air entry bilaterally. No wheezing or rhonchi. Cardiovascular: Positive S1, positive S2. Regular rate and rhythm. Abdomen: Positive bowel sounds in all 4 quadrants. Soft, non-tender, non- distended. : Deferred. Rectal: Deferred. Skin: Warm, dry. Intact. Extremities: 2+ radial pulses bilaterally. No lower extremity edema. Neuro: Awake, alert, oriented x3. No gross motor or sensory deficits. Cranial nerves II through XII intact. Gait not assessed. laboratory and microbiology Laboratory Tests 12/02/24 06:21 11/30/24 10:04 Test 12/02/24 06:21 Range/Units Serum Glucose 92 74-106 mg/dL Assessment/Plan Impression: Acute on chronic hypoxic respiratory failure Hx of lung transplant in 2021 Chronic steroid use Seasonal allergies Atrial fibrillation Bronchiectasis Multifocal atypical pneumonia Right pleural effusion, small Atelectasis Events: Upgrade to ICU. CT chest on 12/01/24 demonstrated hepatic cysts. Sternal wire sutures in the mid sternum. Bilateral perihilar peribronchial thickening. Patient was very short of breath this morning STAT ABG and chest x-ray were obtained. Albuterol 10 mg continuous med neb was given. Gave Lasix 40 mg IV x1. Initially was on supplemental oxygen, 3 LPM NC Increased O2 requirements - tachypneic with RR in 30s Required NIPPV with FiO2 of 40% CT abd-pelvis reviewed; demonstrated bronchiectasis, peribronchial thickening and multifocal airspace opacities. Interval development of severe atypical pneumonia. Small right pleural effusion. CXR demonstrates no acute opacities. Continue bronchodilators Continue Singulair Continue broad spectrum antibiotics Continue antifungal medication Continue antivirals. On Eliquis BID. Hx of lung transplant - on immunosuppressants. Discussed with family risks and benefits of intubation. and son declined intubation. Monitor respiratory status closely - may require emergent intubation. Note, pt is allergic to azithromycin, doxycycline and levofloxacin. Labs and imaging reviewed. Rest of plan as noted below. Plan: Continue BiPAP with FiO2 of 40% Titrate to keep O2 sats above 92%. Continue bronchodilators. On Montelukast Continue antibiotics Incentive spirometry Eliquis BID Pain control Avoid oversedation Monitor renal function. Monitor electrolytes. Supplement as necessary. Monitor ins and outs. History of lung transplant, on immunosuppressants DVT prophylaxis. Prognosis: Guarded given patient's multiple co-morbidities. Condition: Critical Rest of plan per hospitalist and other consultants. A total of 35 minutes of critical care time was spent reviewing the patient record, examining the patient, making a diagnostic and therapeutic plan, discussing this plan with the medical personnel, following up on diagnostic studies and following the patient for clinical stability excluding any and all procedures. At least 50% of this time was spent in direct, [id number] contact. Thank you, IQRA Stark, for allowing me to participate in this patient's care. Further recommendations will depend on the patient's clinical course. Please do not hesitate to contact me if you have any questions or concerns. This medical document was created using an electronic medical record system with [email or web address] dictation system. Although these documentations are being carefully reviewed, there may still be some phonetic and typographical changes. The errors are purely typographical, due to imperfection on the software program, and do not reflect any compromise in the patient's medical care. Plan discussed with: Spouse, Son, Other (RN) Critical Care Time(min): 35 DELICIA EDGE MD Dec 02, 2024 23:02
[2024-12-03] VITALS: BP 129/70; PULSE 120; PULSE 121; RESP 35; RESP 37; O2SAT 95; O2SAT 98
[2024-12-03 00:15] VITALS: BP 132/86; PULSE 119; RESP 36; O2SAT 100
[2024-12-03 00:30] VITALS: BP 137/79; PULSE 120; RESP 39
[2024-12-03 00:45] VITALS: BP 132/81; PULSE 120; RESP 37; O2SAT 95
[2024-12-03] MEDS ORDERED: ENVARSUS 1 MG PO SCH (08:00)
[2024-12-03] MEDS ORDERED: ENVARSUS 0.75 MG PO SCH (08:00)
--- NOTE | 2024-12-03 09:36 | DVHDS2 ---
Discharge Summary Date of Admission Nov 29, 2024 at 19:21 Date of Discharge: Dec 02, 2024 Admitting Diagnosis Acute on chronic hypoxic respiratory failure Labs/Diagnostic Data: Laboratory Results Test 12/02/24 16:50 12/02/24 06:21 12/01/24 23:59 11/30/24 10:04 Blood Gas Specimen Type Arterial Blood Gas Sample Site Right radial Blood Gas Patient Temperature 37.0 Arterial Blood Date Drawn [id number] Arterial Blood pH 7.370 (7.350-7.450) Arterial Blood Partial Pressure CO2 47.9 mmHg (35.0-48.0) Arterial Blood Partial Pressure O2 97.3 mmHg (83.0-108.0) Arterial Blood HCO3 27.1 mmol/L (21.0-28.0) Arterial Blood Oxygen Saturation 96.3 % (94.0-98.0) Arterial Blood Base Excess 1.3 mmol/L (-2.0-3.0) Arterial Blood Oxyhemoglobin 95.5 % (94.0-98.0) Arterial Blood Carboxyhemoglobin 0.8 % (0.5-1.5) Arterial Blood Methemoglobin 0.0 % (0.0-1.5) Levi Test Yes Blood Gas Total Hemoglobin 11.20 g/dL (13.5-17.5) Blood Gas Set Respiration Rate 12.0 Blood Gas Modality Mask - bipap FiO2 % 40.0 Blood Gas EPAP 5 Blood Gas IPAP 12 Sodium Level 139 mmol/L (136-145) Potassium Level 4.8 mmol/L (3.5-5.1) Chloride Level 99 mmol/L (98-107) Carbon Dioxide Level 30 mmol/L (20-31) Anion Gap 10 (5-15) Blood Urea Nitrogen 27 mg/dL (9-23) Creatinine 0.92 mg/dL (0.700-1.30) Glomerular Filtration Rate Calc 96 mL/min (>90) BUN/Creatinine Ratio 29.3 (10.0-20.0) Serum Glucose 92 mg/dL (74-106) Calcium Level 9.7 mg/dL (8.7-10.4) D-Dimer, Quantitative 0.27 mg/L FEU (0.0-0.49) Troponin I High Sensitivity 12 ng/L (</=54) B-Type Natriuretic Peptide 97.33 pg/mL (0-100) White Blood Count 10.4 10^3/uL (4.4-10.8) Red Blood Count 3.07 10^6/uL (4.5-5.90) Hemoglobin 10.3 g/dL (13.5-17.5) Hematocrit 31.8 % (41.0-53.0) Mean Corpuscular Volume 103.7 fL (80.0-100.0) Mean Corpuscular Hemoglobin 33.7 pg (28.0-32.0) Mean Corpuscular Hemoglobin Concent 32.5 g/dL (32.0-36.0) Red Cell Distribution Width 16.3 % (11.8-14.3) Platelet Count 377 10^3/uL (140-450) Mean Platelet Volume 7.8 fL (6.9-10.8) Neutrophils (%) (Auto) % (37.0-80.0) Lymphocytes (%) (Auto) % (10.0-50.0) Monocytes (%) (Auto) % (0.0-12.0) Basophils (%) (Auto) % (0.0-2.0) Neutrophils # (Auto) 10 ^3/uL (1.6-8.6) Lymphocytes # (Auto) 10 ^3/uL (0.4-5.4) Monocytes # (Auto) 10 ^3/uL (0-1.3) Differential Total Cells Counted 100.0 (100) Neutrophils % (Manual) 86 (37.0-80.0) Band Neutrophils % (Manual) 9 Lymphocytes % (Manual) 2 (10.0-50.0) Monocytes % (Manual) 1 (0-12) Eosinophils % (Manual) 0 (0-7) Basophils % (Manual) 0 (0.0-2.0) Metamyelocytes % (manual) 1 Myelocytes % (Manual) 0 Promyelocytes % (Manual) 1 Blast Cells % (Manual) 0 Reactive Lymphocytes 0 Platelet Estimate Adequate Macrocytosis Slight Test 11/29/24 21:03 11/29/24 20:49 11/29/24 17:39 Influenza Type A Antigen Negative (Negative) Influenza Type B Antigen Negative (Negative) SARS-CoV-2 Antigen (Rapid) Negative (NEGATIVE) Lactic Acid Level 1.3 mmol/L (0.4-2.0) Urine Color Light-yellow (Yellow) Urine Clarity Clear (Clear) Urine pH 5.5 (5.0-9.0) Urine Specific [place] 1.016 (1.001-1.035) Urine Protein Trace (Negative) Urine Ketones Negative (Negative) Urine Blood Negative /uL (Negative) Urine Nitrite Negative (Negative) Urine Bilirubin Negative (Negative) Urine Urobilinogen Normal mg/dL (Negative) Urine Leukocyte Esterase Negative /uL (Negative) Urine RBC <1 /hpf (0 - 3) Urine Microscopic WBC 1 /HPF (0-3) Urine Squamous Epithelial Cells None seen /hpf (<5) Urine Bacteria None seen /hpf (None Seen) Urine Mucus Few (None Seen) Urine Glucose Normal mg/dL (Normal) Other Laboratory Tests 12/02/24 06:21 11/30/24 10:04 Brief Hx & Hospital Course: History of Present Illness 59 year old presents for evaluation shortness for breath. Patient with a history of lung transplant three years ago presents with shortness for with a productive cough with yellow phlegm for the past three days. Patient reports occasional chills. Denies chest pain or palpitations. No fever. No other acute complaints reported. Course of hospitalization: Patient was initially seen by Dr. Gricelda Walton, followed by Dr. Haritha Britton who started the patient on IV Rocephin, with continuation of the patient's home immunotherapy regimen as well as antifungal and antiviral medication. Patient was clinical status worsened. Patient was placed for transfer to [facility] with the patient had his bilateral lung transplant for pulmonary fibrosis. 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 When I assessed with the patient yesterday, the patient was found to be tachypneic, with audible rhonchi, as well as use of accessory muscles. It was also reported that the patient had no colostomy output from his colostomy was recently placed for acute diverticulitis. Patient had CT scan of the abdomen and pelvis which revealed no obstruction at this time, but did reveal distended stomach. Pulmonary consultation was already on the case, with long discussion made with Dr. Vasquez. He was agreeable for the patient was placed on BiPAP, with reassessment for possible intubation. 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 After that assessment, it was felt the patient can be re-evaluated later time if his clinical status worsened. The patient had broadening of his antibiotic therapy with meropenem and vancomycin. Patient was eventually transferred to step-down ICU, and from there was transferred by [facility] to [facility]. Long discussion was made with the patient's family yesterday prior to transfer regarding his prognosis. All questions answered. Physical examination General: Alert and Oriented x3. No acute distress. Well-nourished. Eyes: EOMI. Anicteric. HENT: Moist mucous membranes. Lungs: Clear to auscultation bilaterally. No accessory muscle use. Cardiovascular: Regular rate and rhythm. No murmur. No JVD. Abdomen: Soft, non-tender and non-distended. No palpable masses. Extremities: No edema. Non-tender. Skin: No rashes or lesions. Warm. Neurologic: No focal neurological deficits. CN II-XII grossly intact, but not individually tested. Psychiatric: Cooperative. Appropriate mood and affect. Total time spent with patient discussing and formulating plan of care: 35 minutes. This medical document was created using an electronic medical record system with I-MD dictation system. Although this document has been carefully reviewed, there may still be some phonetic and typographical errors. These areas are purely typographical due to imperfections of the software programs, and do not reflect any compromise in the patient's medical care. Consults/Reason for consult Pulmonology: Acute respiratory failure Condition at Discharge: Poor Final Diagnosis/Problems List PNA Secondary diagnosis -acute hypoxic respiratory failure -history of pulmonary fibrosis, status post bilateral lung transplant three years ago -probable aspiration pneumonia -COPD -atrial fibrillation -probable sepsis Discharge Disposition: Acute Care Facility Discharge Instruct/Medications Diet: Cardiac 2g Na,low cholest Activity: No Restrictions, As Tolerated Follow Up/Referral: pcp 1-2 weeks 36 Discharge Statement: "Patient was advised to return to the ER or call 911 if any headaches, dizziness, shortness of breath, chest pain, abdominal pain, bleeding, fevers, or worsening of medical condition. Patient was counseled about treatment plan, medications, possible side effects, patientverbalized understanding. All questions were answered to the best of my ability. This discharge took greater then 30 minutes in planning, reviewing documentation, counseling the patient, and discussing with other team members." ASSESSMENT ASSESSMENT Assessment PNA Date of Service: Dec 03, 2024 Billing Provider: BEBA ELLER NP Common Visit Codes: 67921-YAB/OBS DISCH DAY >30min BEBA ELLER NP Dec 03, 2024 09:36
--- NOTE | 2024-12-03 09:51 | ECG ---
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
--- NOTE | 2024-12-03 09:51 | ECG ---
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
[2024-12-03] MEDS ORDERED: MULTIPLE VITAMIN TAB PO SCH (10:00)
[2024-12-03] MEDS ORDERED: MOTEGRITY 2 MG PO SCH (10:00)
[2024-12-03] MEDS ORDERED: PATIENTS OWN MEDICATION PO SCH ×2 (10:00)
[2024-12-03] MEDS ORDERED: FOLIC ACID 1 MG TAB PO SCH (10:00)
[2024-12-03] MEDS ORDERED: predniSONE 5 MG TAB PO SCH ×2 (10:00→12:12)
[2024-12-05] MEDS ORDERED: predniSONE 5 MG TAB PO SCH (12:13)
[2024-12-06] MEDS ORDERED: predniSONE 5 MG TAB PO SCH (12:16)
== END 2024-12-03 01:11 | disposition short-term general hospital (02) | DRG 871 ==
LOC: ER 13:57 → OVERFLOW 19:21 → EAST 22:43 → TELE-EAST 12-02 09:45 → ICU CENTRL 12-02 18:44
PROVIDERS: ADMIT Internal Medicine; ATTEND Internal Medicine
PROC: 5A09357 Assistance with Respiratory Ventilation, Less than 24 Consecutive Hours, Continuous Positive Airway Pressure (ICD-10-PCS; principal; 2024-12-02)
DX: A41.9 Sepsis, unspecified organism (principal); J18.9 Pneumonia, unspecified organism; J69.0 Pneumonitis due to inhalation of food and vomit; J96.21 Acute and chronic respiratory failure with hypoxia; N17.9 Acute kidney failure, unspecified; T86.818 Other complications of lung transplant; J44.0 Chronic obstructive pulmonary disease with (acute) lower respiratory infection; J47.0 Bronchiectasis with acute lower respiratory infection; J90 Pleural effusion, not elsewhere classified; I48.91 Unspecified atrial fibrillation; K21.9 Gastro-esophageal reflux disease without esophagitis; J98.4 Other disorders of lung; J84.10 Pulmonary fibrosis, unspecified; I10 Essential (primary) hypertension; Z88.1 Allergy status to other antibiotic agents; Z79.60 Long term (current) use of unspecified immunomodulators and immunosuppressants; Z79.52 Long term (current) use of systemic steroids; Z83.3 Family history of diabetes mellitus; Z93.3 Colostomy status; Z82.5 Family history of asthma and other chronic lower respiratory diseases; Z82.49 Family history of ischemic heart disease and other diseases of the circulatory system; Z99.81 Dependence on supplemental oxygen; Y84.8 Other medical procedures as the cause of abnormal reaction of the patient, or of later complication, without mention of misadventure at the time of the procedure; Y92.89 Other specified places as the place of occurrence of the external cause
CPT/HCPCS: 36415; 36600; 71045; 71250; 74176; 80048; 81001; 82805; 83605; 83880; 84484; 85007; 85027; 85379; 87426; 87804; 93005; 94640; 94644; 94660; 96374; 99291; G0378; J2185; J2704; J7517